=== PATIENT | female | born 1945 | race Caucasian/White ===

== ENCOUNTER → 2016-09-26 | Outpatient (CLI) | payer OTHER, MEDICARE ==
[~2016-09-26] MED LIST: ALEVE220 MG PO; AMARYL4 MG PO; ANTI-DIARRHEAL2 MG PO; AUGMENTIN 875875 MG PO; AZATHIOPRINE50 MG PO; CALCIUM 600 +1 EA15 PO; CALCIUM OYSTER500 MG PO; CEFDINIR300 MG PO; CINNAMON500 MG PO; CULTURELLE1 EAC1 PO; DOXYCYCLINE HY100 M3 PO; ENALAPRIL MALEA10 M1 PO; FEMARA2.5 MG PO; GLUCOSAMINE &1 EACH PO; GUAIFENESIN; HYDROCHLOROTHIA25 M1 PO; HYDROXYCHLOROQ200 M1 PO; IMURAN 50MG TAB50 M1 PO; METFORMIN 500500 MG PO; METFORMIN HCL500 MG PO; MSM500 MG PO; NORCO 5-325 TA1 EACH PO; OMEPRAZOLE40 MG PO; PREDNISONE 10 M10 MG PO; PREDNISONE 5 MG5 M1 PO; PRILOSEC20 MG PO; REZYST IM TABL150 MG PO; STOOL SOFTENER100 MG PO; TESSALON PERLE100 MG PO; ULTRACET TABLET1 TAB PO; VASOTEC10 MG PO; VITAMIN B-12500 MCG PO; VITAMIN C500 M1 PO; VITAMIN D1000 UNI1 PO; WOMEN'S DAILY1 EAC2 PO
== END ==
LOC: PUL 08:55
DX: J84.9 Interstitial pulmonary disease, unspecified (principal)

== ENCOUNTER → 2016-12-13 | Outpatient (CLI) | payer OTHER, MEDICARE ==
[~2016-12-13] VITALS: Ht 149.9 cm; Wt 74.4 kg
[~2016-12-13] MED LIST changes: +CELEBREX 200 M200 MG PO
--- NOTE | ~2016-12-13 | HPC ---
[facility] [place] [address] PAIN MANAGEMENT CONSULTATION Name: SAL GALLAGHER Kaushik Room #: REG GENOLashae Verdin#: [id number] Admission: 12/13/16 Attend Phys: Richard Laughlin DO Discharge: Date of : 49 Report #: [id number] THIS REPORT FOR: //name// CC: Cliff Laughlin The patient is a 71-year-old female, prior seen in pain clinic back in March for symptomatic lumbar radiculopathy secondary to spinal stenosis. She has had 2 prior epidural injections with incremental improvement of baseline pain, was actually doing well until she was standing in a wedding, had acute exacerbation of pain, right posterior leg to the foot, throbbing, aching sensation, she rates it an 8/10. This is associated with some weakness, fortunately no bowel or bladder continence changes noted. PHYSICAL EXAMINATION: Shows a 71-year-old female, BMI is 33.1 kg/m2. Vital signs are generally stable. Rises from chair using armrest. Modestly antalgic gait. Grossly positive straight leg raise on the right. Decreased plantar flexion strength. Reviewed the MRI findings from March 2016, noting dramatic stenosis at L4-L5, severe stenosis of the canal down to 0.5 cm, annular tear noted at left paramedian disk, there is severe right neural foraminal narrowing. L5-S1, notes bilateral neural foraminal narrowing as well. ASSESSMENT: Symptomatic lumbar radiculopathy secondary to spinal stenosis. RECOMMENDATIONS: Epidural injection under fluoroscopy today, right of midline at L5-S1. Follow up in 3 weeks for reevaluation and consideration for repeat injection if indicated clinically. Otherwise, we will simply follow up on an as needed basis. PROCEDURE: Lumbar epidural injection under fluoroscopy. PROCEDURE NOTE: After both written and informed consent to include risk of spinal cord damage, increased pain, weakness and dural puncture, the patient was taken to the fluoroscopy suite, placed in the prone position. After sterile prep and drape, a skin wheal with lidocaine was raised. A 22-gauge epidural Tuohy needle was inserted in the midline at L5-S1 with good loss to resistance. Negative aspiration for cerebrospinal fluid or blood was noted. Then 1 mL of Omnipaque under biplanar fluoroscopy showed good spread within the epidural space. This was followed with 80 mg of triamcinolone plus 1 mL of 1.5% preservative-free Xylocaine, 0.5 mL Xylocaine was then injected to flush the [facility] [address] [place] [address] PAIN MANAGEMENT CONSULTATION Name: SAL GALLAGHER Room #: REG CLI Lambert#: [id number] Admission: 12/13/16 Attend Phys: Richard Laughlin DO Discharge: Date of : 49 Report #: [id number] needle; it was removed. The patient was monitored for an appropriate period of time and discharged in good and stable condition. <ELECTRONICALLY SIGNED> By: Richard Laughlin DO 12/17/16 0856 1544 1851 Richard Laughlin DO /matthew
[2016-12-13 14:20] VITALS: BP 138/71
== END | disposition home or self-care (01) ==
LOC: PAIN 06:47
DX: M54.16 Radiculopathy, lumbar region (principal); M48.06 Spinal stenosis, lumbar region; G89.29 Other chronic pain; Z88.8 Allergy status to other drugs, medicaments and biological substances; Z98.890 Other specified postprocedural states

== ENCOUNTER → 2017-01-25 | Outpatient (CLI) | payer OTHER, MEDICARE | LOC: NUC 09:30 | DX: C50.919 Malignant neoplasm of unspecified site of unspecified female breast (principal); D47.2 Monoclonal gammopathy; M47.892 Other spondylosis, cervical region; M41.86 Other forms of scoliosis, lumbar region; M41.84 Other forms of scoliosis, thoracic region; M47.896 Other spondylosis, lumbar region; M47.894 Other spondylosis, thoracic region; M16.11 Unilateral primary osteoarthritis, right hip; M19.012 Primary osteoarthritis, left shoulder; M19.011 Primary osteoarthritis, right shoulder; M19.032 Primary osteoarthritis, left wrist; M19.031 Primary osteoarthritis, right wrist; M89.8X9 Other specified disorders of bone, unspecified site ==

== ENCOUNTER → 2017-03-26 | Outpatient (CLI) | payer OTHER, MEDICARE | LOC: RAD 11:52 | DX: R05 Cough (principal) ==

== ENCOUNTER → 2017-04-05 | Outpatient (CLI) | payer OTHER, MEDICARE ==
[~2017-04-05] VITALS: Ht 149.9 cm; Wt 71.8 kg
[~2017-04-05] MED LIST changes: +NEURONTIN 300300 M1 PO
--- NOTE | ~2017-04-05 | HPC ---
[facility] [place] [address] PAIN MANAGEMENT CONSULTATION Name: SAL GALLAGHER Kaushik Room #: REG Lashae Verdin#: [id number] Admission: 04/05/17 Attend Phys: Richard Laughlin DO Discharge: Date of : 49 Report #: [id number] THIS REPORT FOR: //name// CC: Cliff Laughlin The patient is a very pleasant 71-year-old female well known to the pain clinic, being treated for symptomatic lumbar radiculopathy secondary to spinal stenosis. She was prior seen about a year ago in March 2016, given epidural injection with excellent improvement of pain. The patient notes some 60% improvement for nearly a year. Pain has begun to recur, primarily low back, right hip, down to the foot and posterior aspect of the leg. We reviewed diagnostic findings including MRI of the lumbar spine from 03/26/2016 showing severe stenosis at L4-L5 down to 0.5 cm, severe disk space narrowing at L5-S1 as well. PHYSICAL EXAMINATION: Shows pleasant 71-year-old female, BMI is ____ kilograms per meter squared. Vital signs are stable as noted in the EMR. Rises from chair using armrest. Moderately antalgic gait favoring the right leg. Positive straight leg raise on the right with diminished right plantar flexion, lower extremity flexion strength. ASSESSMENT: Symptomatic lumbar radiculopathy secondary to spinal stenosis. RECOMMENDATIONS: Epidural injection under fluoroscopy today at L5-S1. Follow up simply as needed. PROCEDURE: Lumbar epidural injection under fluoroscopy. PROCEDURE NOTE: After both written and informed consent to include risk of spinal cord damage, increased pain, weakness and dural puncture, the patient was taken to the fluoroscopy suite, placed in the prone position. After sterile prep and drape, a skin wheal with lidocaine was raised. A 22-gauge epidural Tuohy needle was inserted in the midline at L5-S1 with good loss to resistance. Negative aspiration for cerebrospinal fluid or blood was noted. Then 1 mL of Omnipaque under biplanar fluoroscopy showed good spread within the epidural space. This was followed with 80 mg of triamcinolone plus 1 mL of 1.5% preservative-free Xylocaine, 0.5 mL Xylocaine was then injected to flush the needle; it was removed. The patient was monitored for an appropriate period of time and discharged in good and stable condition. By: [id number] [id number] Richard Laughlin DO /nt
[2017-04-05 13:33] VITALS: BP 145/55
== END | disposition home or self-care (01) ==
LOC: PAIN 04-04 07:06
DX: M48.061 Spinal stenosis, lumbar region without neurogenic claudication (principal); G89.29 Other chronic pain; Z98.890 Other specified postprocedural states; Z88.6 Allergy status to analgesic agent; Z79.899 Other long term (current) drug therapy; Z88.8 Allergy status to other drugs, medicaments and biological substances

== ENCOUNTER → 2017-04-10 | Outpatient (CLI) | payer OTHER, MEDICARE | LOC: PUL 09:45 | DX: J84.9 Interstitial pulmonary disease, unspecified (principal) ==

== ENCOUNTER → 2017-07-10 | Outpatient (CLI) | payer OTHER, MEDICARE ==
[~2017-07-10] MED LIST changes: +CYMBALTA20 MG PO; +DIFLUCAN200 MG PO; +HYDROCHLOROTHIA25 M2 PO; +METHYLPREDNISOLO4 MG PO; +PEPCID20 MG PO; +SYMBICORT160 MCG/4. INH; +TRAMADOL 50 MG50 MG PO; +TRESIBA FL100 UNIT/1 PO; +TRESIBA FL200 UNIT/1 SUBQ; +VENTOLIN HFA 1818 GM INH; +ZANAFLEX4 MG PO; +ZOFRAN ODT4 MG DISSOLVE
== END ==
LOC: RAD 01:07
DX: Z12.31 Encounter for screening mammogram for malignant neoplasm of breast (principal)

== ENCOUNTER → 2017-08-05 | Outpatient (CLI) | payer OTHER, MEDICARE ==
[~2017-08-05] VITALS: Ht 147.3 cm; Wt 69.7 kg
--- NOTE | ~2017-08-05 | HPC ---
[facility] [place] [address] PAIN MANAGEMENT CONSULTATION Name: SAL GALLAGHER Kaushik Room #: REG GENOLashae Verdin#: [id number] Admission: 08/05/17 Attend Phys: Richard Laughlin DO Discharge: Date of : 47 Report #: [id number] THIS REPORT FOR: //name// CC: Cliff Laughlin The patient is a pleasant 71-year-old female, being treated for symptomatic lumbar radiculopathy. She had prior injection in March 2017 (L5-S1) with excellent improvement of pain. The patient noted 80% improvement for 3 months, notes the pain has gradually begun to recur without antecedent trauma and overuse. Pain is chronically in the right low back and legs, now on the left side. Posterior thigh and beltline. She is developing some right-sided weakness with activity. To her credit, she continues to do water aerobics 3 times a week, takes Aleve [id number] p.r.n. Rates her pain presently; however, an 8 on VAS. PHYSICAL EXAMINATION: Shows a 71-year-old female, BMI is 32.1 kg/m2. Again, subjective pain score is 8 on a VAS. Blood pressure 128/60, pulse 73, and respirations are 16. She has not fallen in 3 months. Rises from chair using armrest. Antalgic gait. Lumbar flexion and kyphosis, weak left lower extremity, again 45-degree flexion. We reviewed MRI findings including MRI from 03/26/2016. L4-L5 notes severe stenosis, canal diminished with an annular tear. ASSESSMENT: Symptomatic lumbar radiculopathy secondary to spinal stenosis. RECOMMENDATION: Epidural injection under fluoroscopy today at L5-S1. Follow up simply as needed. PROCEDURE: Lumbar epidural injection under fluoroscopy. PROCEDURE NOTE: After both written and informed consent to include risk of spinal cord damage, increased pain, weakness and dural puncture, the patient was taken to the fluoroscopy suite, placed in the prone position. After sterile prep and drape, a skin wheal with lidocaine was raised. A 22-gauge epidural Tuohy needle was inserted in the midline at L5-S1 with good loss to resistance. Negative aspiration for cerebrospinal fluid or blood was noted. Then 1 mL of Omnipaque under biplanar fluoroscopy showed good spread within the epidural space. This was followed with 80 mg of triamcinolone plus 1 mL of 1.5% preservative-free Xylocaine, 0.5 mL Xylocaine was then injected to flush the needle; it was removed. The patient was monitored for an appropriate period of time and discharged in good and stable condition. <ELECTRONICALLY SIGNED> By: Richard Laughlin DO 08/07/17 1417 1301 1334 Richard Laughlin DO /nt
[2017-08-05 08:34] VITALS: BP 128/60
== END | disposition home or self-care (01) ==
LOC: PAIN 08-01 06:48
DX: M54.16 Radiculopathy, lumbar region (principal); Z68.32 Body mass index [BMI] 32.0-32.9, adult; M48.061 Spinal stenosis, lumbar region without neurogenic claudication

== ENCOUNTER → 2017-10-04 | Outpatient (CLI) | payer OTHER, MEDICARE ==
[~2017-10-04] MED LIST changes: -CYMBALTA20 MG PO; -DIFLUCAN200 MG PO; -HYDROCHLOROTHIA25 M2 PO; -METHYLPREDNISOLO4 MG PO; -PEPCID20 MG PO; -SYMBICORT160 MCG/4. INH; -TRAMADOL 50 MG50 MG PO; -TRESIBA FL100 UNIT/1 PO; -TRESIBA FL200 UNIT/1 SUBQ; -VENTOLIN HFA 1818 GM INH; -ZANAFLEX4 MG PO; -ZOFRAN ODT4 MG DISSOLVE
== END ==
LOC: PUL 05:53
DX: J84.9 Interstitial pulmonary disease, unspecified (principal)

== ENCOUNTER → 2017-10-22 | Outpatient (CLI) | payer OTHER, MEDICARE | LOC: CAT 06:17 → EDSTATUS 18:07 | DX: M47.896 Other spondylosis, lumbar region (principal); J84.9 Interstitial pulmonary disease, unspecified; M48.07 Spinal stenosis, lumbosacral region; M41.86 Other forms of scoliosis, lumbar region; M54.40 Lumbago with sciatica, unspecified side ==

== ENCOUNTER → 2017-11-07 | Outpatient (CLI) | payer OTHER, MEDICARE ==
[~2017-11-07] VITALS: Ht 149.9 cm; Wt 66.2 kg
[~2017-11-07] MED LIST changes: +CYMBALTA20 MG PO; +TRAMADOL 50 MG50 MG PO; +ZANAFLEX4 MG PO
--- NOTE | ~2017-11-07 | HPC ---
[address] [address] PAIN MANAGEMENT CONSULTATION Name: SAL GALLAGHER Room #: REG CLLashae Verdin#: [id number] Admission: 11/07/17 Attend Phys: Richard Laughlin DO Discharge: Date of : 47 Report #: [id number] THIS REPORT FOR: //name// CC: Cliff Laughlin DATE OF SERVICE: 11/07/2017 The patient is a pleasant 71-year-old female, prior seen in pain clinic for symptomatic lumbar radiculopathy secondary to spinal stenosis. She is typically doing well with occasional epidural injections, had a midline epidural injection at L5-S1 on 08/05/2017. Unfortunately, this injection really did not afford the typical relief that she usually gets. Prior injections in March and November 2015 had afforded many months relief. She has ongoing pain, bilateral L4 distribution, exacerbated with standing, walking and bending. PHYSICAL EXAMINATION: Shows significant loss of height at multiple levels including L4-L5. Notes antalgic gait, decreased hip flexion, lower extremity extension strength, bilateral straight leg raise at 30 degrees. ASSESSMENT: Symptomatic lumbar radiculopathy secondary to spinal stenosis. RECOMMENDATIONS: After long discussions with the patient today, we have elected to move forward with bilateral L4-L5 transforaminal epidural injections. If this does not afford adequate relief, we will consider spinal cord stimulator as possible therapeutic intervention. Unfortunately, she has significant pulmonary disease, which has precluded her from elective lumbar decompressive surgery. ASSESSMENT: Symptomatic lumbar radiculopathy secondary to spinal stenosis. PROCEDURE: Bilateral L4-L5 transforaminal epidural injection under fluoroscopy. PROCEDURE NUMBER ONE: Transforaminal lumbar epidural injection under fluoroscopy. PROCEDURE NOTE: After both written and informed consent was obtained including risk of spinal cord damage, infection, increased pain and paralysis, the patient agreed to proceed. The patient was taken to the fluoroscopy suite, placed in a prone position with appropriate abdominal bolstering. After sterile prep with ChloraPrep and sterile drape, a skin wheal with 1% Xylocaine was raised. A 22 gauge 4-1/2 inch epidural Tuohy needle was inserted. From an oblique approach into the posterior-superior aspect of the left L4-L5 neural foramen with continuous pressure on the glass syringe plunger for loss of resistance. Glass syringe was filled with 2 mL of 0.1 Xylocaine. The glass loss of resistance [address] [address] PAIN MANAGEMENT CONSULTATION Name: SAL GALLAGHER Room #: REG MAXIMILIAN Verdin#: [id number] Admission: 11/07/17 Attend Phys: Richard Laughlin DO Discharge: Date of : 49 Report #: [id number] syringe was removed. A low volume extension tubing was connected, negative aspiration was accomplished for cerebrospinal fluid or blood. 1 mL of Omnipaque was injected which showed spread both within the epidural space and laterally along the nerve root. This was followed with 40 mg of triamcinolone plus 1 mL of 1.5% preservative-free Xylocaine. Needle was partially withdrawn, 0.5 mL of Xylocaine was injected to clear the needle and the needle was removed. The area was cleansed, band-aid was applied. The patient was allowed to ambulate to the recovery room, discharged in good and stable condition. PROCEDURE NUMBER TWO: Right L4-L5 transforaminal epidural injection under fluoroscopy. PROCEDURE NOTE: After both written and informed consent was obtained including risk of spinal cord damage, infection, increased pain and paralysis, the patient agreed to proceed. The patient was taken to the fluoroscopy suite, placed in a prone position with appropriate abdominal bolstering. After sterile prep with ChloraPrep and sterile drape, a skin wheal with 1% Xylocaine was raised. A 22 gauge 4-1/2 inch epidural Tuohy needle was inserted. From an oblique approach into the posterior-superior aspect of the right L4-L5 neural foramen with continuous pressure on the glass syringe plunger for loss of resistance. Glass syringe was filled with 2 mL of 0.1 Xylocaine. The glass loss of resistance syringe was removed. A low volume extension tubing was connected, negative aspiration was accomplished for cerebrospinal fluid or blood. 1 mL of Omnipaque was injected which showed spread both within the epidural space and laterally along the nerve root. This was followed with 40 mg of triamcinolone plus 1 mL of 1.5% preservative-free Xylocaine. Needle was partially withdrawn, 0.5 mL of Xylocaine was injected to clear the needle and the needle was removed. The area was cleansed, band-aid was applied. The patient was allowed to ambulate to the recovery room, discharged in good and stable condition. <ELECTRONICALLY SIGNED> By: Richard Laughlin DO 11/11/17 0711 1323 194 Richard Laughlin DO /nt
[2017-11-07 10:10] VITALS: BP 124/70
== END | disposition home or self-care (01) ==
LOC: PAIN 05:36
DX: M48.061 Spinal stenosis, lumbar region without neurogenic claudication (principal); G89.29 Other chronic pain; E11.9 Type 2 diabetes mellitus without complications; J98.4 Other disorders of lung; Z88.8 Allergy status to other drugs, medicaments and biological substances; Z79.899 Other long term (current) drug therapy; Z98.890 Other specified postprocedural states; Z85.3 Personal history of malignant neoplasm of breast; Z96.653 Presence of artificial knee joint, bilateral

== ENCOUNTER 2018-01-03 23:50 | Emergency (ER) | payer OTHER, MEDICARE ==
[~2018-01-03] VITALS: Ht 147.3 cm; Wt 63.0 kg
--- NOTE | ~2018-01-03 | EKG ---
[address] [address] [place] [address] ELECTROCARDIOGRAM REPORT Name: SAL GALLAGHER Room #: [facility] [id number] Admission: 01/03/18 Attend Phys: Discharge: 01/04/18 Date of : 49 Report #: [id number] THIS REPORT FOR: //name// 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 01/05/18 1401 0022 0022 Willi Hudson MD, FACC /EPI
[~2018-01-03 23:50] MED LIST changes: -PEPCID20 MG PO; -ZOFRAN ODT4 MG DISSOLVE
[2018-01-04 00:41] LABS: ABSOLUTE NEUTROPHILS 3.8 thou/uL (1.4-8.2); BASOPHILS 0.9 % (0.0-2.0); EOSINOPHILS 4.2 % (0.0-3.0); HEMATOCRIT 34.7 % (37.0-47.0); HEMOGLOBIN 11.9 gm/dL (12.0-15.0); LYMPHOCYTES 28.7 % (24.0-44.0); MCH 33.4 pg (26.0-34.0); MCHC 34.4 g/dL (28.0-37.0); MCV 96.9 fL (80.0-100.0); MONOCYTES 8.4 % (1.0-8.0); PLATELET COUNT 316 thou/uL (150-400); POLYS 57.8 % (36.0-66.0); RBC 3.58 mil/uL (4.20-5.00); RDW 17.4 % (10.5-14.5); WBC 6.6 thou/uL (4.0-11.0)
[2018-01-04 00:51] LABS: ANION GAP 5 mmol/L (7-16); BUN 31 mg/dL (7-18); CALCIUM 9.9 mg/dL (8.5-10.1); CHLORIDE 94 mmol/L (98-107); CO2 30 mmol/L (21-32); CREATININE 1.5 mg/dL (0.6-1.0); GLUCOSE 436 mg/dL (74-106); POTASSIUM 4.4 mmol/L (3.5-5.1); SODIUM 129 mmol/L (136-145)
[2018-01-04 01:00] LABS: ALBUMIN 3.5 g/dL (3.4-5.0); MAGNESIUM 1.8 mg/dL (1.8-2.4); PHOSPHORUS 3.5 mg/dL (2.5-4.9); SGOT 24 U/L (15-37); SGPT 19 U/L (30-65); TOTAL BILIRUBIN 0.5 mg/dL (<0.1-1.0); TOTAL PROTEIN 7.4 g/dL (6.4-8.2); TROPONIN-I <0.06 ng/mL (<0.06)
[2018-01-04 01:45] LABS: URINE BILIRUBIN NEGATIVE (Negative); URINE BLOOD NEGATIVE (Negative); URINE CLARITY CLEAR; URINE COLOR YELLOW; URINE GLUCOSE-RANDOM* 3+ (Negative); URINE KETONES NEGATIVE (Negative); URINE LEUKOCYTES-REFLEX NEGATIVE (Negative); URINE NITRITE-REFLEX NEGATIVE (Negative); URINE PROTEIN (DIPSTICK) NEGATIVE (Negative); URINE SPECIFIC GRAVITY <= 1.005 (1.005-1.035); URINE UROBILINOGEN 0.2 E.U./dl (0.2-1.0)
[2018-01-04] MEDS ORDERED: ZOFRAN ODT4 MG DISSOLVE (04:24)
[2018-01-04] MEDS ORDERED: PEPCID20 MG PO (04:26)
[2018-01-04 04:44] VITALS: BP 158/70
== END 2018-01-04 04:46 | disposition home or self-care (01) ==
LOC: ER 23:50
PROVIDERS: Emergency Medicine
DX: E11.22 Type 2 diabetes mellitus with diabetic chronic kidney disease (principal); N18.9 Chronic kidney disease, unspecified; K59.00 Constipation, unspecified; R05 Cough; Z90.11 Acquired absence of right breast and nipple; Z90.710 Acquired absence of both cervix and uterus; Z90.89 Acquired absence of other organs; Z88.5 Allergy status to narcotic agent; Z88.8 Allergy status to other drugs, medicaments and biological substances

== ENCOUNTER → 2018-01-03 | Outpatient (CLI) | payer OTHER, MEDICARE ==
[~2018-01-03] MED LIST changes: +PEPCID20 MG PO; +ZOFRAN ODT4 MG DISSOLVE
== END ==
LOC: CAT 08:38
DX: J32.8 Other chronic sinusitis (principal); J34.1 Cyst and mucocele of nose and nasal sinus

== ENCOUNTER 2018-01-09 12:44 | Inpatient (IN) | payer OTHER, MEDICARE ==
[~2018-01-09] VITALS: Ht 147.3 cm; Wt 61.7 kg
[2018-01-09] VITALS (9 sets, daily range): BP systolic 96–148; BP diastolic 58–102
[~2018-01-09 12:44] MED LIST changes: +PEPCID20 MG PO; +ZOFRAN ODT4 MG DISSOLVE
[2018-01-09] MEDS ORDERED: OMEPRAZOLE40 MG PO (13:38)
[2018-01-09] MEDS ORDERED: DIFLUCAN200 MG PO (13:39)
[2018-01-09] MEDS ORDERED: METHYLPREDNISOLO4 MG PO (13:39)
[2018-01-09 15:08] LABS: ALBUMIN 3.7 g/dL (3.4-5.0); CALCIUM 10.2 mg/dL (8.5-10.1); POTASSIUM 5.6 mmol/L (3.5-5.1); TOTAL BILIRUBIN 0.7 mg/dL (<0.1-1.0); TOTAL PROTEIN 7.8 g/dL (6.4-8.2)
[2018-01-10 04:08] VITALS: BP 131/69
[2018-01-10] MEDS ORDERED: TRESIBA FL200 UNIT/1 SUBQ (07:20)
[2018-01-10 09:18] VITALS: BP 118/62
[2018-01-10 15:58] VITALS: BP 118/62
[2018-01-10 19:27] VITALS: BP 118/62
== END 2018-01-10 16:55 | disposition home or self-care (01) | DRG 683 ==
LOC: 4W 12:44 → ENTRNSPT 01-10 16:21 → 4W 01-10 16:55
PROVIDERS: Family Medicine
DX: N17.9 Acute kidney failure, unspecified (principal); E87.1 Hypo-osmolality and hyponatremia; E11.65 Type 2 diabetes mellitus with hyperglycemia; Z96.659 Presence of unspecified artificial knee joint; E87.5 Hyperkalemia; J84.10 Pulmonary fibrosis, unspecified; Z88.6 Allergy status to analgesic agent; Z88.8 Allergy status to other drugs, medicaments and biological substances; Z90.710 Acquired absence of both cervix and uterus; Z79.4 Long term (current) use of insulin
CPT/HCPCS: 10047

== ENCOUNTER → 2018-05-05 | Outpatient (CLI) | payer OTHER, MEDICARE ==
[~2018-05-05] VITALS: Ht 149.9 cm; Wt 57.6 kg
[~2018-05-05] MED LIST changes: +DIFLUCAN200 MG PO; +HYDROCHLOROTHIA25 M2 PO; +METHYLPREDNISOLO4 MG PO; +SYMBICORT160 MCG/4. INH; +TRESIBA FL100 UNIT/1 PO; +TRESIBA FL200 UNIT/1 SUBQ; +VENTOLIN HFA 1818 GM INH
--- NOTE | ~2018-05-05 | PATH ---
[facility] [place] [place] [address] PATHOLOGY RPT PROCEDURE Name: SAL KOROMA Kaushik Room #: REG MAXIMILIAN Oakes.#: [id number] Admission: 05/05/18 Date of : 49 Discharge: Report #: [id number] Path Case #: [id number] [facility] Accession Number: [id number] . 01 Material submitted: . 60CM MASS . 01 Clinical history: . Pre-OP DX: Diarrhea Post-OP DX: Colon mass . 02 Diagnosis: Colonic mucosa, "60 cm mass": - Fragments of hyperplastic polyps with focal early adenomatous change. - A minute fragment reveals an ulcerated mucosa with few fragments of colonic glands. - See comment. . (SHA:robert; 05/06/18) QLM/05/06/2018 . 02 Comment: Suggest clinical correlation as the biopsy may not be bilingual sales representative if there is a colonic mass. Repeat colonoscopy and biopsy may be recommended. . (SHA:mml; 05/06/18) . 02 Electronically signed: . Rui Hill MD, Pathologist NPI- [id number] . 01 Gross description: . Received in formalin labeled "Sal Koroma, 60 cm mass," are multiple segments of saldivar soft tissue measuring 2.0 x 0.3 x 0.1 cm in aggregate dimensions. The specimen is filtered and entirely submitted in cassette A1. (TSD; 05/05/2018) TOB/TOB . 02 Pathologist provided ICD-10: K63.5, K63.3 . 02 CPT . 337873 Specimen Comment: A courtesy copy of this report has been sent to Specimen Comment: [phone], [phone]. [address] [address] PATHOLOGY RPT PROCEDURE Name: SAL KOROMA Room #: REG CLI Kaushik.#: [id number] Admission: 05/05/18 Date of : 49 Discharge: Report #: [id number] Path Case #: [id number] Specimen Comment: Report sent to / DR SANTIAGO Specimen Comment: A duplicate report has been generated due to demographic updates. Performed at: 01 [facility] [address] [facility] [address], [place], [place] [id number] MD Harish Soliman MD Phone: [phone] Performed at: [address] [facility] [id number] MD Kristy Foreman MD Phone: [phone]
== END | disposition home or self-care (01) ==
LOC: GI 08:55
DX: K63.5 Polyp of colon (principal); K63.3 Ulcer of intestine; E11.9 Type 2 diabetes mellitus without complications; K64.9 Unspecified hemorrhoids; F32.9 Major depressive disorder, single episode, unspecified; J44.9 Chronic obstructive pulmonary disease, unspecified; E11.40 Type 2 diabetes mellitus with diabetic neuropathy, unspecified; K21.9 Gastro-esophageal reflux disease without esophagitis; I26.99 Other pulmonary embolism without acute cor pulmonale; G89.29 Other chronic pain; Z98.890 Other specified postprocedural states; Z88.2 Allergy status to sulfonamides; Z88.8 Allergy status to other drugs, medicaments and biological substances; Z86.718 Personal history of other venous thrombosis and embolism; Z79.4 Long term (current) use of insulin; Z79.899 Other long term (current) drug therapy; Z96.653 Presence of artificial knee joint, bilateral; Z90.710 Acquired absence of both cervix and uterus; Z85.3 Personal history of malignant neoplasm of breast
CPT/HCPCS: 62110; 62900

== ENCOUNTER 2018-07-02 03:44 | Inpatient (IN) | payer OTHER, MEDICARE ==
[~2018-07-02] VITALS: Ht 147.3 cm; Wt 60.5 kg
[~2018-07-02 03:44] MED LIST changes: +ALEVE220 M1 PO; +LANTUS100 UNIT/M SUBQ; +PROAIR HFA8.5 GM INH; +VITAMIN D31000 UNIT PO
[2018-07-02 10:45] VITALS: BP 134/70
[2018-07-02 20:06] VITALS: BP 164/67
[2018-07-03 04:09] LABS: CALCIUM 9.1 mg/dL (8.5-10.1); CREATININE 1.1 mg/dL (0.6-1.0); POTASSIUM 4.2 mmol/L (3.5-5.1)
[2018-07-03 04:10] LABS: ABSOLUTE NEUTROPHILS 9.9 thou/uL (1.4-8.2); BASOPHILS 0.1 % (0.0-2.0); HEMATOCRIT 27.7 % (37.0-47.0); HEMOGLOBIN 9.5 gm/dL (12.0-15.0); LYMPHOCYTES 6.5 % (24.0-44.0); MCH 31.1 pg (26.0-34.0); MCHC 34.4 g/dL (28.0-37.0); MCV 90.3 fL (80.0-100.0); MONOCYTES 6.4 % (1.0-8.0); PLATELET COUNT 204 thou/uL (150-400); RBC 3.07 mil/uL (4.20-5.00); WBC 11.4 thou/uL (4.0-11.0)
[2018-07-03 04:41] VITALS: BP 127/50
[2018-07-03 08:24] VITALS: BP 112/56
[2018-07-03 16:35] VITALS: BP 128/49
[2018-07-03 20:24] VITALS: BP 168/54
[2018-07-04] VITALS (7 sets, daily range): BP systolic 13–144; BP diastolic 46–89
[2018-07-04 05:43] LABS: ABSOLUTE NEUTROPHILS 6.2 thou/uL (1.4-8.2); BASOPHILS 0.4 % (0.0-2.0); HEMATOCRIT 23.7 % (37.0-47.0); HEMOGLOBIN 8.3 gm/dL (12.0-15.0); LYMPHOCYTES 12.5 % (24.0-44.0); MCH 31.5 pg (26.0-34.0); MCV 89.9 fL (80.0-100.0); MONOCYTES 7.7 % (1.0-8.0); PLATELET COUNT 165 thou/uL (150-400); POLYS 77.4 % (36.0-66.0); RBC 2.63 mil/uL (4.20-5.00); RDW 17.1 % (10.5-14.5); WBC 8.1 thou/uL (4.0-11.0)
[2018-07-04 05:58] LABS: CALCIUM 8.8 mg/dL (8.5-10.1); POTASSIUM 4.2 mmol/L (3.5-5.1)
[2018-07-04] MEDS ORDERED: TRAMADOL HCL50 MG PO (12:56)
[2018-07-04] MEDS ORDERED: ONDANSETRON HCL4 M2 PO (12:56)
[2018-07-04] MEDS ORDERED: MIRALAX17 GM PO (12:56)
[2018-07-05 06:57] LABS: ABSOLUTE NEUTROPHILS 6.2 thou/uL (1.4-8.2); BASOPHILS 0.5 % (0.0-2.0); EOSINOPHILS 3.6 % (0.0-3.0); HEMATOCRIT 25.6 % (37.0-47.0); HEMOGLOBIN 8.7 gm/dL (12.0-15.0); LYMPHOCYTES 8.2 % (24.0-44.0); MCH 30.8 pg (26.0-34.0); MCV 90.7 fL (80.0-100.0); MONOCYTES 6.9 % (1.0-8.0); PLATELET COUNT 195 thou/uL (150-400); POLYS 80.8 % (36.0-66.0); RBC 2.82 mil/uL (4.20-5.00); RDW 17.3 % (10.5-14.5); WBC 7.6 thou/uL (4.0-11.0)
[2018-07-05 07:05] LABS: CALCIUM 9.3 mg/dL (8.5-10.1); CREATININE 0.9 mg/dL (0.6-1.0); POTASSIUM 4.9 mmol/L (3.5-5.1)
[2018-07-05 07:41] VITALS: BP 158/77
[2018-07-07 11:08] VITALS: BP 116/46
--- NOTE | 2018-07-07 12:06 | PATH ---
[facility] [place] [address] PATHOLOGY RPT PROCEDURE Name: SAL KOROMA Kaushik Room #: 224-P [facility] IN M.R.#: [id number] Admission: 07/02/18 Date of : 49 Discharge: 07/05/18 Report #: [id number] Path Case #: [id number] LCA Accession Number: [id number] . 01 Material submitted: . SIGMOID RECTAL COLON . 01 Clinical history: . Colon tumor . 02 Diagnosis: Large intestine, sigmoid/rectum, laparoscopic hemicolectomy: - Ulceration associated with moderate to marked active colitis (please see comment). - Negative for dysplasia or malignancy. - Margins showing reactive changes;negative for dysplasia or malignancy (please see comment). - 31 reactive lymph nodes with hyperplasia; negative for malignancy (0/31). . Omentum, omentectomy: - 13.0 cm of omentum showing reactive changes. (IUV:paul; 07/04/2018) QMS/07/04/2018 . 02 Comment: Multiple sections of the ulcerated area along with the adjacent unremarkable mucosa are examined. The sections show extensive ulceration along with cryptitis, crypt abscess formation, as well as rare architectural abnormalities. In addition, transmural lymphoid aggregates are present. Granulomata are not identified. There are no viral inclusions present as well. Overall, the findings may be suggestive of an inflammatory bowel disease, especially Crohn's disease due to the presence of transmural lymphoid aggregates, as well as skip areas. The lack of malignancy as well as the same differential is discussed with Dr. Wong Gomes at approximately 2:30 p.m. on 07/04/2018. . The margins show rare foci of acute inflammation; however, active ulceration is not identified. The margins are viable without any evidence of dysplasia or malignancy as well. (IUV:paul; 07/04/2018) . 02 Electronically signed: . Kristy Foreman MD, Pathologist NPI- [id number] . 01 Gross description: . [address] [address] PATHOLOGY RPT PROCEDURE Name: SAL KOROMA Room #: 224-P [facility] IN M.R.#: [id number] Admission: 07/02/18 Date of : 49 Discharge: 07/05/18 Report #: [id number] Path Case #: [id number] The specimen is received in formalin, labeled "Sal Koroma, sigmoid rectal colon" and consists of 2 oriented segments of large intestine. The first is previously opened with previous black tattoo ink present. A suture at the open end designates proximal while the opposite end is closed with rachael (distal). It measures 23.5 cm in length and ranges from 1.5-2.5 cm in diameter. There is pericolic fat lining the entire specimen measuring up to 8.1 cm. At the site of black tattoo ink and extending to the proximal margin, there is stricture. At the site of stricture there is a saldivar-brown, multi focally friable/ulcerated tumor mass (9.5 x 1.4 cm) which grossly abuts the proximal resection margin. The mass extends greater than 12 cm from the distal margin and 1.5 cm from the nearest mesenteric margin. The nearest mesenteric margin is inked blue, the serosa black, and the proximal margin orange. Sectioning through the tumor mass reveals containment within the mucosa. The rest of the mucosa is saldivar-brown with no additional masses or lesions. Sectioning and palpation of the pericolic tissue reveals multiple lymph node candidates ranging from 0.2 cm to 1.0 cm. Body Art Technician sections are submitted as follows: . A1-A2: Perpendicular proximal margin sections A3: Distal margin A4: Tumor transition to distal uninvolved mucosa A5-A7: Body Art Technician mass A8: Perpendicular mesenteric margin A9: 2 lymph node candidates, bisected one inked blue A10: Multiple intact lymph node candidates A11: 2 bisected lymph node candidates, one inked blue A12: Multiple intact lymph node candidates A13: 2 bisected lymph node candidates, one inked blue A14: 2 bisected lymph node candidates, one inked blue A15: 2 bisected lymph node candidates, one inked blue A16: Intact lymph node candidates . The second oriented segment has a suture designating the proximal end while the distal end is closed. It measures 20.5 cm in length and ranges from 2.0-3.4 cm in diameter with pericolic fat lining the specimen measuring up to 6.5 cm. Also present and attached is a segment of omentum measuring 13.0 x 10.0 cm. Opening reveals a pink-saldivar mucosa with a probable pink-saldivar and focally scarred tumor mass which grossly extends to the distal margin, greater than 10 cm from the proximal margin, and measures 5.0 x 2.0 cm. The distal margin is inked orange and the serosa black. The tumor mass extends 2.3 cm from the nearest mesenteric margin (inked blue). Sectioning through the tumor mass reveals containment within the mucosa. No additional masses or lesions are identified. Sectioning the omentum reveals no nodules or tumor masses. Sectioning and palpation of the pericolic tissue reveals multiple lymph node candidates measuring between 0.2 cm and 0.7 cm. Body Art Technician sections are submitted as follows: [address] [address] PATHOLOGY RPT PROCEDURE Name: SAL KOROMA Kaushik Room #: 224-P [facility] IN M.R.#: [id number] Admission: 07/02/18 Date of : 49 Discharge: 07/05/18 Report #: [id number] Path Case #: [id number] . A17: Proximal margin A18: Distal margin, perpendicular A19: Tumor mass transition to proximal uninvolved mucosa A20-A22: Additional tumor mass A23: Mesenteric margin, perpendicular A24: Omentum A25: Multiple intact lymph node candidates A26: 2 bisected lymph node candidates, one inked blue (SDY; 07/03/2018) SYU/SYU . 02 Pathologist provided ICD-10: K63.3, K52.9, K63.9, R59.9 . 02 CPT . 476836, 188687 Specimen Comment: A courtesy copy of this report has been sent to Specimen Comment: [phone], , . Specimen Comment: Report sent to ,DR SANTIAGO / DR ADAMS Specimen Comment: A duplicate report has been generated due to demographic updates. Performed at: [address], [place] [id number] MD Harish Soliman MD Phone: [phone] Performed at: [address] [id number] MD Kristy Foreman MD Phone: [phone]
== END 2018-07-05 15:01 | disposition home health service (06) | DRG 329 ==
LOC: PRE 03:44 → 4E 05:33 → TBA 05:33 → PRE 06:29 → 4E 20:28 → ENTRNSPT 07-04 15:07 → EDTRNSPTSTS 07-04 15:14 → SICU 07-04 15:41
PROVIDERS: ADMIT Surgery
PROC: 0DTG4ZZ Resection of Left Large Intestine, Percutaneous Endoscopic Approach (ICD-10-PCS; principal; 2018-07-02)
PROC: 0DBN8ZX Excision of Sigmoid Colon, Via Natural or Artificial Opening Endoscopic, Diagnostic (ICD-10-PCS; 2018-07-02)
DX: R19.09 Other intra-abdominal and pelvic swelling, mass and lump (principal); E43 Unspecified severe protein-calorie malnutrition; M35.1 Other overlap syndromes; K59.00 Constipation, unspecified; E11.9 Type 2 diabetes mellitus without complications; K63.9 Disease of intestine, unspecified; M47.9 Spondylosis, unspecified; J84.10 Pulmonary fibrosis, unspecified; I10 Essential (primary) hypertension; K21.9 Gastro-esophageal reflux disease without esophagitis; D72.829 Elevated white blood cell count, unspecified; D64.9 Anemia, unspecified; I65.8 Occlusion and stenosis of other precerebral arteries; D47.2 Monoclonal gammopathy; R05 Cough; Z23 Encounter for immunization; Z79.4 Long term (current) use of insulin; Z88.6 Allergy status to analgesic agent; Z88.2 Allergy status to sulfonamides; Z88.8 Allergy status to other drugs, medicaments and biological substances; Z79.899 Other long term (current) drug therapy; Z86.711 Personal history of pulmonary embolism; Z85.3 Personal history of malignant neoplasm of breast; Z68.27 Body mass index [BMI] 27.0-27.9, adult
CPT/HCPCS: 10783; 15000; 50010; 50101; 50221; 50249; 50290; 50386; 50455; 50555; 50558; 50740; 50804; 51398; 51489; 52265; 53307; 53310; 54022; 54118; 56462; 56524; 56525; 56526; 56530; 56753; 57092; 62110; 62900; 64039; 70005

== ENCOUNTER → 2018-07-28 | Outpatient (CLI) | payer OTHER, MEDICARE ==
[~2018-07-28] MED LIST changes: +MIRALAX17 GM PO; +ONDANSETRON HCL4 M2 PO; +TRAMADOL HCL50 MG PO
== END ==
LOC: RAD 01:02
DX: Z12.31 Encounter for screening mammogram for malignant neoplasm of breast (principal)

== ENCOUNTER → 2018-08-12 | Outpatient (CLI) | payer OTHER, MEDICARE | LOC: HYPER 08-05 14:15 | DX: E11.622 Type 2 diabetes mellitus with other skin ulcer (principal); I70.243 Atherosclerosis of native arteries of left leg with ulceration of ankle; L97.322 Non-pressure chronic ulcer of left ankle with fat layer exposed; E11.51 Type 2 diabetes mellitus with diabetic peripheral angiopathy without gangrene; G89.29 Other chronic pain; I73.00 Raynaud's syndrome without gangrene; I10 Essential (primary) hypertension; I42.2 Other hypertrophic cardiomyopathy; M81.0 Age-related osteoporosis without current pathological fracture; M06.9 Rheumatoid arthritis, unspecified; F32.9 Major depressive disorder, single episode, unspecified; F41.9 Anxiety disorder, unspecified; Z86.718 Personal history of other venous thrombosis and embolism; Z85.3 Personal history of malignant neoplasm of breast; Z79.4 Long term (current) use of insulin; Z79.84 Long term (current) use of oral hypoglycemic drugs ==

== ENCOUNTER → 2018-08-19 | Outpatient (CLI) | payer OTHER, MEDICARE | LOC: HYPER 07:19 | DX: E11.622 Type 2 diabetes mellitus with other skin ulcer (principal); L97.322 Non-pressure chronic ulcer of left ankle with fat layer exposed; L89.520 Pressure ulcer of left ankle, unstageable; E11.51 Type 2 diabetes mellitus with diabetic peripheral angiopathy without gangrene; I73.00 Raynaud's syndrome without gangrene; I10 Essential (primary) hypertension; M81.0 Age-related osteoporosis without current pathological fracture; M06.9 Rheumatoid arthritis, unspecified; F32.9 Major depressive disorder, single episode, unspecified; Z79.4 Long term (current) use of insulin; Z79.84 Long term (current) use of oral hypoglycemic drugs; Z85.3 Personal history of malignant neoplasm of breast; Z86.718 Personal history of other venous thrombosis and embolism ==

== ENCOUNTER → 2018-08-26 | Outpatient (CLI) | payer OTHER, MEDICARE | LOC: HYPER 07:06 | DX: E11.622 Type 2 diabetes mellitus with other skin ulcer (principal); I70.243 Atherosclerosis of native arteries of left leg with ulceration of ankle; L97.322 Non-pressure chronic ulcer of left ankle with fat layer exposed; E11.51 Type 2 diabetes mellitus with diabetic peripheral angiopathy without gangrene; G89.29 Other chronic pain; I73.00 Raynaud's syndrome without gangrene; I10 Essential (primary) hypertension; I42.2 Other hypertrophic cardiomyopathy; M81.0 Age-related osteoporosis without current pathological fracture; M06.9 Rheumatoid arthritis, unspecified; F32.9 Major depressive disorder, single episode, unspecified; Z85.3 Personal history of malignant neoplasm of breast; Z86.718 Personal history of other venous thrombosis and embolism; Z79.4 Long term (current) use of insulin; Z79.84 Long term (current) use of oral hypoglycemic drugs ==

== ENCOUNTER → 2018-08-28 | Outpatient (CLI) | payer OTHER, MEDICARE ==
[~2018-08-28] MED LIST changes: +AZITHROMYCIN 2250 MG PO; +BENZONATATE100 MG PO; +NEURONTIN 300300 M1; +TAMIFLU30 MG PO
--- NOTE | ~2018-08-28 | PFR/MVV ---
[facility] [place] [address] PULMONARY FUNCTION MVV/REPORT Name: AILEENSAL R Room #: REG [facility]#: [id number] ������������������ Admission: 08/28/18 ������������������ Attend Phys: Physician not on staff Discharge: ������������������ Date of : 49 Report #: [id number] THIS REPORT FOR: //name// >> SPIROMETRY: (BTPS) Height: in cm Weight: lbs kg Exam Date: PRE-RX POST-RX PRED BEST %PRED BEST %PRED %CHG FVC LITERS . . . . . . FEV1 LITERS . . . . . . FEV1/FVC % . . . . . . HMA32-71% L/Sec . . . . . . PEF L/SEC . . . . . . FEF50/FIF50 UNITLESS . . . . . . MVV L/Min . . . f 1/Min . . . >> LUNG VOLUMES: (BTPS) PRE-RX POST-RX PRED AVG %PRED AVG %PRED %CHG VC Liters . . . . . . TLC Liters . . . . . . RV Liters . . . . . . RV/TLC % . . . . . . FRC PL Liters . . . . . . FRC N2 Liters . . . . . . ERV Liters . . . . . . IC Liters . . . . . . >> DIFFUSION: DLCO ml/Min/mmHg . . . . . . DL Chris ml/Min/mmHg . . . . . . DLCO/VA ml/Min/mmHg . . . . . . VA Liters . . . . . . COMMENTS: COMMENTS: >> RESISTANCE: [facility] [address] [place] [address] PULMONARY FUNCTION MVV/REPORT Name: AILEENSAL Room #: REG MAXIMILIAN Lambert#: [id number] ������������������ Admission: 08/28/18 ������������������ Attend Phys: Physician not on staff Discharge: ������������������ Date of : 47 Report #: [id number] PRE-RX PRED AVG %PRED Raw Total cmH20/L/Sec . . . Raw Insp cmH20/L/Sec . . . Raw Exp cmH20/L/Sec . . . Raw cmH20/L/Sec . . . Gaw L/Sec/cmH20 . . . sRaw cmH20 Sec . . . sGaw l/cmH20 Sec . . . Vtq Liters . . . # = OUTSIDE 95% CONFIDENCE INTERVAL CALIBRATION: PRED: 3.00 ACTUAL: EXP 3.01 INSP 3.02 IPS-OL10-06 [facility]- N-1804-4 >> INTERPRETATION/IMPRESSION: CC: Cliff York Physician staff DATE OF SERVICE: 08/28/2018 FEV1 1.17 liters (67%), FVC is 1.49 liters (70%). FEV1/FVC ratio is 78%; post-bronchodilator response is significant with FEV1 increasing to 1.30 liters (12% change). Total lung capacity is 2.05 liters (57%). RV is 0.42 liters (29%). Diffusing capacity is 9. IMPRESSION: Pulmonary function studies are consistent with a moderate restrictive airflow defect. There is a significant response to bronchodilator therapy. Diffusing capacity is severely decreased. ��������������������������������������������� ���������������������������������������� By: ��������������������������������������������� Mika Buck MD /nt
== END ==
LOC: PUL 08-26 13:11
DX: J84.9 Interstitial pulmonary disease, unspecified (principal)

== ENCOUNTER 2018-09-05 15:45 | Inpatient (IN) | payer OTHER, MEDICARE ==
[~2018-09-05] VITALS: Ht 124.5 cm; Wt 61.2 kg
[~2018-09-05 15:45] MED LIST changes: -AZITHROMYCIN 2250 MG PO; -BENZONATATE100 MG PO; -NEURONTIN 300300 M1; -TAMIFLU30 MG PO
[2018-09-05 16:25] VITALS: BP 145/64
[2018-09-05] MEDS ORDERED: NEURONTIN 300300 M1 (16:31)
[2018-09-05 16:53] LABS: HEMATOCRIT 29.2 % (37.0-47.0); MCH 28.5 pg (26.0-34.0); MCHC 34.1 g/dL (28.0-37.0); MCV 83.8 fL (80.0-100.0); RBC 3.49 mil/uL (4.20-5.00); RDW 18.6 % (10.5-14.5); WBC 5.4 thou/uL (4.0-11.0)
[2018-09-05 17:17] LABS: ALBUMIN 3.2 g/dL (3.4-5.0); CALCIUM 9.9 mg/dL (8.5-10.1); CREATININE 0.9 mg/dL (0.6-1.0); POTASSIUM 4.4 mmol/L (3.5-5.1); TOTAL BILIRUBIN 0.3 mg/dL (<0.1-1.0); TOTAL PROTEIN 7.7 g/dL (6.4-8.2)
--- NOTE | 2018-09-05 18:04 | NUR ---
ADM PT IS A DIRECT ADMIT FROM PROVIDER OFFICE. ADM ORDERS CARRIED OUT. PT ORIENTED TO ROOM. WILL CONTINUE TO MONITOR.
[2018-09-05 20:48] VITALS: BP 164/66
--- NOTE | 2018-09-06 03:47 | NUR ---
PT SLEPT THROUGH MOST OF THE NIGHT PT USED CALL LIGHT EFFECTIVELY NO ISSUES OVERNIGHT.
[2018-09-06 04:52] VITALS: BP 109/42
[2018-09-06 08:29] VITALS: BP 131/50
[2018-09-06 15:42] VITALS: BP 136/54
--- NOTE | 2018-09-06 17:50 | NUR ---
Pt A&Ox4, VSS, PT HAS NO SIGNS OF DISTRESS. PT HAS CRACKLES AND A NON-PRODUCTIVE COUGH. WOUND ON LEFT ANKLE, WOUND CONSULT OR PLACED. WILL CONTINUE TO MONITOR.
[2018-09-06 19:30] VITALS: BP 126/52
--- NOTE | 2018-09-07 01:11 | NUR ---
PT RESTED THROUGHOUT THE NIGHT WITH NO ISSUES OR COMPLAINTS PT USED CALL LIGHT EFFECTIVELY.
[2018-09-07 04:37] VITALS: BP 120/51
[2018-09-07 07:55] VITALS: BP 94/51
--- NOTE | 2018-09-07 12:48 | NUR ---
Pt A&Ox4 with stable VS. No SOA, crackles heard with lung assessment, breathing regular. Pt has a non-productive cough. Right hand IV has been removed. Pt states she felt burning sensation with IV Azithromycin. Pt takes PO Azithromycin instead. Per doctors report, pt will see wound doctor in regards to wound on left ankle. Will continue to monitor.
[2018-09-07 13:52] VITALS: BP 113/47
[2018-09-07 19:45] VITALS: BP 122/44
[2018-09-08 04:04] VITALS: BP 142/54
--- NOTE | 2018-09-08 05:55 | NUR ---
Assumed care at 1845. Pt resting in bed. Denies chest pain. She still has been having a non productive cough. VSS. No identified needs at the moment. Call light within reach. Will continue to monitor.
[2018-09-08] MEDS ORDERED: TAMIFLU30 MG PO (07:46)
[2018-09-08] MEDS ORDERED: BENZONATATE100 MG PO (07:47)
[2018-09-08] MEDS ORDERED: AZITHROMYCIN 2250 MG PO (07:47)
[2018-09-08] MEDS ORDERED: CEFDINIR300 MG PO (07:48)
[2018-09-08 08:32] VITALS: BP 112/44
[2018-09-08 11:11] VITALS: BP 112/44
--- NOTE | 2018-09-08 12:24 | NUR ---
PT LEFT HOME WITH DAUGHTER, PT TAKEN DOWN BY WHEELCHAIR. PT LEFT A&OX4, BREATHING REGULAR, CRACKLES STILL HEARD IN ALL LOBES WITH NON PRODUCTIVE COUGH. VITAL SIGNS STABLE. PT VERBALIZED UNDERSTANDING OF DISCHARGE ORDERS AND SIGNED. PT HAS PRESCIPTIONS AND FOLLOWUP INFORMATION. PT AWARE SHE IS TO FOLLOW UP WITH PRIMARY DR AND WOUND DR. PT HAS ALL BELONGINGS.
== END 2018-09-08 12:40 | disposition home or self-care (01) | DRG 195 ==
LOC: 4W 15:45 → ENTRNSPT 09-08 12:11 → EDTRNSPTSTS 09-08 12:14 → 4W 09-08 12:40
PROVIDERS: ADMIT Family Medicine
DX: J10.00 Influenza due to other identified influenza virus with unspecified type of pneumonia (principal); E11.9 Type 2 diabetes mellitus without complications; J84.10 Pulmonary fibrosis, unspecified; K21.9 Gastro-esophageal reflux disease without esophagitis; G89.29 Other chronic pain; M54.9 Dorsalgia, unspecified; Z96.653 Presence of artificial knee joint, bilateral; Z85.3 Personal history of malignant neoplasm of breast; Z86.711 Personal history of pulmonary embolism; Z90.710 Acquired absence of both cervix and uterus; Z79.4 Long term (current) use of insulin; Z79.899 Other long term (current) drug therapy; Z88.5 Allergy status to narcotic agent; Z88.2 Allergy status to sulfonamides; Z88.8 Allergy status to other drugs, medicaments and biological substances
CPT/HCPCS: 10045

== ENCOUNTER → 2018-09-05 | Outpatient (CLI) | payer OTHER, MEDICARE | LOC: HYPER 09-02 08:39 | DX: E11.622 Type 2 diabetes mellitus with other skin ulcer (principal); I70.243 Atherosclerosis of native arteries of left leg with ulceration of ankle; L97.322 Non-pressure chronic ulcer of left ankle with fat layer exposed; E11.51 Type 2 diabetes mellitus with diabetic peripheral angiopathy without gangrene; G89.29 Other chronic pain; I73.00 Raynaud's syndrome without gangrene; I10 Essential (primary) hypertension; I42.2 Other hypertrophic cardiomyopathy; M81.0 Age-related osteoporosis without current pathological fracture; M06.9 Rheumatoid arthritis, unspecified; M19.90 Unspecified osteoarthritis, unspecified site; F41.9 Anxiety disorder, unspecified; F32.9 Major depressive disorder, single episode, unspecified; Z86.718 Personal history of other venous thrombosis and embolism; Z85.3 Personal history of malignant neoplasm of breast; Z79.4 Long term (current) use of insulin; Z79.84 Long term (current) use of oral hypoglycemic drugs ==

== ENCOUNTER → 2018-09-12 | Outpatient (CLI) | payer OTHER, MEDICARE ==
[~2018-09-12] MED LIST changes: +AZITHROMYCIN 2250 MG PO; +BENZONATATE100 MG PO; +NEURONTIN 300300 M1; +TAMIFLU30 MG PO
== END ==
LOC: HYPER 08:16
DX: E11.622 Type 2 diabetes mellitus with other skin ulcer (principal); I70.243 Atherosclerosis of native arteries of left leg with ulceration of ankle; L97.322 Non-pressure chronic ulcer of left ankle with fat layer exposed; I10 Essential (primary) hypertension; I73.00 Raynaud's syndrome without gangrene; E11.51 Type 2 diabetes mellitus with diabetic peripheral angiopathy without gangrene; I11.9 Hypertensive heart disease without heart failure; I43 Cardiomyopathy in diseases classified elsewhere; G89.29 Other chronic pain; M81.0 Age-related osteoporosis without current pathological fracture; M06.9 Rheumatoid arthritis, unspecified; M19.90 Unspecified osteoarthritis, unspecified site; F41.9 Anxiety disorder, unspecified; Z79.4 Long term (current) use of insulin; Z79.84 Long term (current) use of oral hypoglycemic drugs; Z85.3 Personal history of malignant neoplasm of breast

== ENCOUNTER → 2018-09-16 | Outpatient (CLI) | payer OTHER, MEDICARE | LOC: RAD 14:27 | DX: M47.812 Spondylosis without myelopathy or radiculopathy, cervical region (principal); M48.02 Spinal stenosis, cervical region; M47.816 Spondylosis without myelopathy or radiculopathy, lumbar region; M41.86 Other forms of scoliosis, lumbar region; M47.814 Spondylosis without myelopathy or radiculopathy, thoracic region; M41.84 Other forms of scoliosis, thoracic region; M19.011 Primary osteoarthritis, right shoulder; M19.022 Primary osteoarthritis, left elbow; R91.8 Other nonspecific abnormal finding of lung field; E11.10 Type 2 diabetes mellitus with ketoacidosis without coma; E83.52 Hypercalcemia; Z96.653 Presence of artificial knee joint, bilateral ==

== ENCOUNTER → 2018-09-26 | Outpatient (CLI) | payer OTHER, MEDICARE | LOC: HYPER 08:09 | DX: E11.622 Type 2 diabetes mellitus with other skin ulcer (principal); I70.243 Atherosclerosis of native arteries of left leg with ulceration of ankle; L97.322 Non-pressure chronic ulcer of left ankle with fat layer exposed; E11.51 Type 2 diabetes mellitus with diabetic peripheral angiopathy without gangrene; G89.29 Other chronic pain; I73.00 Raynaud's syndrome without gangrene; I10 Essential (primary) hypertension; I42.2 Other hypertrophic cardiomyopathy; M81.0 Age-related osteoporosis without current pathological fracture; N06.9 Isolated proteinuria with unspecified morphologic lesion; F32.9 Major depressive disorder, single episode, unspecified; F41.9 Anxiety disorder, unspecified; Z85.3 Personal history of malignant neoplasm of breast; Z86.718 Personal history of other venous thrombosis and embolism; Z79.4 Long term (current) use of insulin; Z79.84 Long term (current) use of oral hypoglycemic drugs ==

== ENCOUNTER → 2018-10-03 | Outpatient (CLI) | payer OTHER, MEDICARE ==
[~2018-10-03] VITALS: Ht 147.3 cm; Wt 59.9 kg
[~2018-10-03] MED LIST changes: +GABAPENTIN 100100 MG PO; -NEURONTIN 300300 M1
--- NOTE | ~2018-10-03 | HPC ---
[facility] [address] [place] [address] PAIN MANAGEMENT CONSULTATION Name: SAL GALLAGHER Room #: REG MAXIMILIAN Lambert#: [id number] Admission: 10/03/18 ������������������ Attend Phys: Travis Zambrano MD Discharge: ������������������ Date of : 47 Report #: [id number] THIS REPORT FOR: //name// CC: Travis York DATE OF SERVICE: 10/03/2018 CHIEF COMPLAINT: "Here for medication evaluation." HISTORY: The patient is a 72-year-old female who has been plagued with lumbar radiculopathy. She has a history of spinal stenosis. She has had prior epidural steroid injections. She gleaned very good relief as a result of those. The patient has pain that radiated down into her legs. She has returned to the Pain Clinic with the thought of undergoing an epidural steroid injection because of some mid back pain as well as pain down into her right leg. She rates her pain as 5-6/10. She notes that the pain is exacerbated with activity. ALLERGIES: SULFA, CODEINE, DOCETAXEL. MEDICATIONS: Gabapentin 100 mg b.i.d., albuterol 2 puffs p.r.n., tramadol 50 mg q. six hours p.r.n., Aleve 220 mg, Lantus 10 units subcutaneously, vitamin D3 of 1000 units two capsules daily, Symbicort 160/4.5 one puff, hydrochlorothiazide 25 mg, metformin 500 mg b.i.d., Vasotec 10 mg. PAST MEDICAL HISTORY: Acute kidney injury, back pain, chest pain, chronic kidney disease, colonic obstruction, hip pain, hypoglycemia, left hip pain, lower abdominal pain, uncontrolled diabetes mellitus, nausea and vomiting, connective tissue disease, interstitial lung disease. PAST SURGICAL HISTORY: 1. Right rotator cuff repair. 2. Right breast biopsy, lumpectomy with lymph nodes - no reconstruction. 3. Bilateral total knee replacements, right knee revision. 4. Bilateral carpal tunnel releases and repeat bilateral. 5. Hemorrhoidectomy. 6. Tonsils and adenoids. 7. Hysterectomy. 8. Port-A-Cath placement and removed. 9. Bowel surgery, 08/2018. 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 REVIEW OF SYSTEMS: Night sweats, fever, fatigue, headaches, wears glasses, blurred vision, sore throat, shortness of breath, palpitations, shortness of [facility] [address] [place] [address] PAIN MANAGEMENT CONSULTATION Name: SAL GALLAGHER Room #: REG CLI Kaushik#: [id number] Admission: 10/03/18 ������������������ Attend Phys: Travis Zambrano MD Discharge: ������������������ Date of : 47 Report #: [id number] breath with walking, frequent coughing, nausea and vomiting, thyroid disease, diabetes, excessive thirst, hot and cold intolerance, frequent recurrent headaches, numbness and tingling sensation. DIAGNOSTIC DATA: MRI of the lumbar spine, dated 10/22/2018: 1. Advanced degenerative change with right convexity of the lumbar scoliosis. 2. There is severe central canal stenosis at L2-L3, L3-L4, L4-L5 levels, and moderate central canal stenosis at L5-S1. 3. Bilateral neural foraminal narrowing of various degrees. PAIN CLINIC ASSESSMENT/PQRS: 1. History of osteoarthritis in the right lower extremity, right upper extremity, and spine. 2. History of rheumatoid arthritis: The patient has rheumatoid arthritis changes in her hands. 3. Height 4 feet 10 inches, weight 132 pounds, BMI is 27.6. 4. Vital signs: Blood pressure 147/78, pulse 82, respiratory rate 18, room air saturation is 100%. 5. Pain intensity: 5-6/10. 6. Fall risk: The patient has not fallen in the last 3 months. She does use a cane. 7. Blood thinner: The patient is not on a blood thinning medication. 8. Hypertension: The patient is being treated for hypertension. 9. Opioid therapy greater than 6 weeks: The patient has been using gabapentin to help control the pain. The patient does take tramadol. 10. Risk assessment tool: Low for opioid use. 11. Functional assessment tool. 12. Recreational drug use: The patient denies use of recreational drugs. 13. Tobacco: The patient has never smoked. 14. Alcohol: The patient denies use of alcoholic beverages. PHYSICAL EXAMINATION: GENERAL: The patient is a white female. She appears her stated age. She is alert and oriented x 3. Affect is appropriate. Speech is fluent. HEENT: Normocephalic, atraumatic. Extraocular eye muscles intact. Sclerae nonicteric. Mucous membranes are moist. HEART: Regular rate. S1 and S2. LUNGS: Wheezing, rhonchi. ABDOMEN: Nontender. Bowel sounds present. No guarding. EXTREMITIES: Upper extremity muscle strength is judged to be 4/5. Muscle strength in lower extremities 4/5. The patient walks with use of a cane. She has left ankle ulcer. The patient will be seen in Wound Clinic. She has diabetes. Her blood sugars is 80-157. RECOMMENDATIONS: We discussed treatment options with the patient. At this juncture, we will continue with her medications. She does have an ulcer area in [address] [address] PAIN MANAGEMENT CONSULTATION Name: SAL GALLAGHER Room #: REG [facility].#: [id number] Admission: 10/03/18 ������������������ Attend Phys: Travis Zambrano MD Discharge: ������������������ Date of : 47 Report #: [id number] the left ankle. At this juncture, we discussed the need to have this taken care of. We will consider the use of an epidural steroid injection in the future. We explained that injection with high level of steroid may cause worsening of the wound. The patient has been given a script for Neurontin. She will continue with this medication. She will follow up in the future as her wound has been healed. At that point, we would then consider epidural steroid injection. She has had transforaminal epidural steroid injection in the past and seems to glean benefits from these. We would like to thank you for letting us participate in her care. We hope she continues to improve. ��������������������������������������������� ���������������������������������������� By: ��������������������������������������������� 1734 0532 Travis Zambrano MD /nt
[2018-10-03 11:03] VITALS: BP 147/78
--- NOTE | 2018-10-03 11:09 | NUR ---
Pain Clinic Assessment: 1. History of Osteoarthritis: Right Lower Extremity Right Upper Extremity SPINE History of Rheumatoid Arthritis: YES HANDS SWELL 2. Height: 4 ft. 10 in. 147.3 cm. Weight: 132.0 lb. oz. 59.875 kg. Patient's BMI: 27.6 3. Vital Signs: BP: 147/78 Pulse: 82 Resp: 18 Temp: 02 Sat: 100 ECG Mon: 4. Pain Intensity: 5-6 5. Fall Risk: Dizziness: N Needs help standing or walking: Y Fallen in the last 3 months: N Fall risk comments: USES CANE 6. Patient on Blood Thinner: None 7. History of Hypertension: Y 8. Opioid Therapy greater than 6 weeks: N Opiate Contract Signed: 9. Risk Assessment Tool Provided: 10. Functional Assessment Tool: 11. Recreational Drug Use: Never Drug Type: Tobacco Use: Never Smoker Tobacco Type: Amount or Packs/day: How Many Years: Alcohol Use: No Frequency: Quant:
== END ==
LOC: PAIN 06:59
DX: M48.061 Spinal stenosis, lumbar region without neurogenic claudication (principal); M54.16 Radiculopathy, lumbar region; Z79.899 Other long term (current) drug therapy

== ENCOUNTER → 2018-10-03 | Outpatient (CLI) | payer OTHER, MEDICARE | LOC: HYPER 08:02 | DX: E11.622 Type 2 diabetes mellitus with other skin ulcer (principal); I70.243 Atherosclerosis of native arteries of left leg with ulceration of ankle; L97.322 Non-pressure chronic ulcer of left ankle with fat layer exposed; I73.00 Raynaud's syndrome without gangrene; E11.51 Type 2 diabetes mellitus with diabetic peripheral angiopathy without gangrene; I10 Essential (primary) hypertension; M81.0 Age-related osteoporosis without current pathological fracture; M19.90 Unspecified osteoarthritis, unspecified site; M06.9 Rheumatoid arthritis, unspecified; R51 Headache; F41.9 Anxiety disorder, unspecified; F32.9 Major depressive disorder, single episode, unspecified; Z79.4 Long term (current) use of insulin; Z79.84 Long term (current) use of oral hypoglycemic drugs; Z85.3 Personal history of malignant neoplasm of breast; Z86.718 Personal history of other venous thrombosis and embolism ==

== ENCOUNTER → 2018-10-10 | Outpatient (CLI) | payer OTHER, MEDICARE | LOC: HYPER 07:42 | DX: E11.622 Type 2 diabetes mellitus with other skin ulcer (principal); I70.243 Atherosclerosis of native arteries of left leg with ulceration of ankle; L97.322 Non-pressure chronic ulcer of left ankle with fat layer exposed; E11.51 Type 2 diabetes mellitus with diabetic peripheral angiopathy without gangrene; I10 Essential (primary) hypertension; I73.00 Raynaud's syndrome without gangrene; G89.29 Other chronic pain; M81.0 Age-related osteoporosis without current pathological fracture; M06.9 Rheumatoid arthritis, unspecified; M19.90 Unspecified osteoarthritis, unspecified site; F41.9 Anxiety disorder, unspecified; F32.9 Major depressive disorder, single episode, unspecified; Z79.4 Long term (current) use of insulin; Z85.828 Personal history of other malignant neoplasm of skin; Z79.84 Long term (current) use of oral hypoglycemic drugs ==

== ENCOUNTER → 2018-10-17 | Outpatient (CLI) | payer OTHER, MEDICARE | LOC: HYPER 06:45 | DX: E11.622 Type 2 diabetes mellitus with other skin ulcer (principal); I70.243 Atherosclerosis of native arteries of left leg with ulceration of ankle; L97.322 Non-pressure chronic ulcer of left ankle with fat layer exposed; E11.51 Type 2 diabetes mellitus with diabetic peripheral angiopathy without gangrene; G89.29 Other chronic pain; I73.00 Raynaud's syndrome without gangrene; I10 Essential (primary) hypertension; I42.2 Other hypertrophic cardiomyopathy; M81.0 Age-related osteoporosis without current pathological fracture; M06.9 Rheumatoid arthritis, unspecified; F32.9 Major depressive disorder, single episode, unspecified; F41.9 Anxiety disorder, unspecified; Z85.3 Personal history of malignant neoplasm of breast; Z86.718 Personal history of other venous thrombosis and embolism; Z79.4 Long term (current) use of insulin; Z79.84 Long term (current) use of oral hypoglycemic drugs ==

== ENCOUNTER → 2018-10-22 | Outpatient (CLI) | payer OTHER, MEDICARE ==
[~2018-10-22] MED LIST changes: +DOXYCYCLINE 10100 MG PO
== END ==
LOC: HYPER 06:36
DX: E11.622 Type 2 diabetes mellitus with other skin ulcer (principal); I70.243 Atherosclerosis of native arteries of left leg with ulceration of ankle; L97.322 Non-pressure chronic ulcer of left ankle with fat layer exposed; E11.51 Type 2 diabetes mellitus with diabetic peripheral angiopathy without gangrene; I73.00 Raynaud's syndrome without gangrene; G89.29 Other chronic pain; I10 Essential (primary) hypertension; I42.2 Other hypertrophic cardiomyopathy; M81.0 Age-related osteoporosis without current pathological fracture; M06.9 Rheumatoid arthritis, unspecified; F32.9 Major depressive disorder, single episode, unspecified; F41.9 Anxiety disorder, unspecified; Z85.3 Personal history of malignant neoplasm of breast; Z86.718 Personal history of other venous thrombosis and embolism; Z79.4 Long term (current) use of insulin; Z79.84 Long term (current) use of oral hypoglycemic drugs

== ENCOUNTER → 2018-10-27 | Outpatient (CLI) | payer OTHER, MEDICARE ==
[~2018-10-27] VITALS: Ht 147.3 cm; Wt 59.0 kg
--- NOTE | 2018-10-28 15:06 | PATH ---
[facility] [place] [address] [address] PATHOLOGY RPT PROCEDURE Name: SAL KOROMA Room #: REG MAXIMILIAN Champ.#: [id number] ������������������ Admission: 10/27/18 ������������������ Date of : 47 Discharge: Report #: [id number] Path Case #: [id number] [facility] Accession Number: [id number] . 01 Material submitted: . colon - RANDOM COLON BX R/O IBD . 01 Clinical history: . Screening, R/O IBD . 02 Diagnosis: Large intestinal mucosa, random colon R/O IBD, endoscopic biopsy: - Mild focal cryptitis. Please see comment. - Negative for dysplasia or malignancy. (IUV:paul; 10/28/2018) QMS/10/28/2018 . 02 Comment: Sections of the colonic mucosa designated "random colon" show focal cryptitis, and a moderately cellular lamina propria composed predominantly of lymphocytes and plasma cells and occasional eosinophils. Surface ulceration is not identified. There are no crypt abscesses, granulomas or viral inclusions. Given the description, the differential diagnosis includes focal mild active colitis of self-limited etiology, bowel preparation, resolving episode of colitis, as well as medication/drug-induced colitis. Please correlate with clinical as well as endoscopic findings. (IUV:paul; 10/28/2018) . 02 Electronically signed: . Kristy Foreman MD, Pathologist NPI- [id number] . 01 Gross description: . The specimen is received in formalin, labeled "Sal Koroma, random colon biopsy". Received are eight segments of pale saldivar soft tissue ranging in size from 0.2 to 0.6 cm in maximum dimensions. The specimen is submitted entirely in cassette A1. (CAA; 10/27/2018) QAC/QAC . 02 Pathologist provided ICD-10: K62.89 . 02 CPT . 542975 Specimen Comment: A courtesy [place] [address] PATHOLOGY RPT PROCEDURE Name: SAL KOROMA Room #: REG CLI [facility]#: [id number] ������������������ Admission: 10/27/18 ������������������ Date of : 47 Discharge: Report #: [id number] Path Case #: [id number] Specimen Comment: [phone], . Specimen Comment: Report sent to / DR SANTIAGO Performed at: [address], [place], [place] [id number] MD Harish Soliman MD Phone: [phone] Performed at: [address] [id number] MD Kristy Foreman MD Phone: [phone]
== END | disposition home or self-care (01) ==
LOC: GI 08:38
DX: Z12.11 Encounter for screening for malignant neoplasm of colon (principal); K62.89 Other specified diseases of anus and rectum; E11.9 Type 2 diabetes mellitus without complications; K21.9 Gastro-esophageal reflux disease without esophagitis; F32.9 Major depressive disorder, single episode, unspecified; Z98.0 Intestinal bypass and anastomosis status; Z86.711 Personal history of pulmonary embolism; Z79.01 Long term (current) use of anticoagulants; Z85.3 Personal history of malignant neoplasm of breast; Z98.890 Other specified postprocedural states; Z90.710 Acquired absence of both cervix and uterus; Z79.899 Other long term (current) drug therapy; Z87.19 Personal history of other diseases of the digestive system
CPT/HCPCS: 62110; 62900

== ENCOUNTER → 2018-11-07 | Outpatient (CLI) | payer OTHER, MEDICARE ==
[~2018-11-07] MED LIST changes: +GENTAMICIN 0.1%15 G2 TOP
== END ==
LOC: HYPER 10-31 07:52
DX: E11.622 Type 2 diabetes mellitus with other skin ulcer (principal); L97.322 Non-pressure chronic ulcer of left ankle with fat layer exposed; E11.51 Type 2 diabetes mellitus with diabetic peripheral angiopathy without gangrene; L03.116 Cellulitis of left lower limb; I73.00 Raynaud's syndrome without gangrene; I10 Essential (primary) hypertension; M81.0 Age-related osteoporosis without current pathological fracture; M06.9 Rheumatoid arthritis, unspecified; R52 Pain, unspecified; F32.9 Major depressive disorder, single episode, unspecified; F41.9 Anxiety disorder, unspecified; Z79.4 Long term (current) use of insulin; Z79.84 Long term (current) use of oral hypoglycemic drugs; Z85.3 Personal history of malignant neoplasm of breast; Z86.718 Personal history of other venous thrombosis and embolism

== ENCOUNTER → 2018-11-12 | Outpatient (CLI) | payer OTHER, MEDICARE ==
[2018-11-12 08:55] VITALS: BP 113/46
[2018-11-12 10:10] VITALS: BP 124/51
[2018-11-12 10:15] VITALS: BP 113/46
--- NOTE | 2018-11-12 10:19 | NUR ---
HERE FOR 1ST OF 2 IRON INFUSIONS (INJECTAFER). REPORTS ONGOING FATIGUE, LOW ENERGY, WT LOSS AND OTHER ISSUES OVER THE LAST FEW MONTHS. 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 INJECTAFER COMPLETED OVER ONE HOUR WITH VSS UPON COMPLETION. WATCHING FOR A FULL 30 MINUTES PRIOR TO DISMISSAL. SCHEDULED TO RETURN AGAIN IN ONE WEEK.
[2018-11-12 10:33] VITALS: BP 119/46
== END ==
LOC: OPONC 02:15
DX: N18.9 Chronic kidney disease, unspecified (principal); D63.1 Anemia in chronic kidney disease; D50.9 Iron deficiency anemia, unspecified
CPT/HCPCS: 95000

== ENCOUNTER → 2018-11-19 | Outpatient (CLI) | payer OTHER, MEDICARE ==
[2018-11-19 14:05] VITALS: BP 135/87
[2018-11-19 15:15] VITALS: BP 129/58
[2018-11-19 15:40] VITALS: BP 129/57
--- NOTE | 2018-11-19 15:50 | NUR ---
IN FOR 2ND AND FINAL INJECTAFER INFUSION. REPORTS FEELING FINE FIRST COUPLE DAYS AFTER INJECTAFER GIVEN LAST WEEK ON SAT BUT HAD ONSET OF NAUSEA ON SAT THAT LASTED TIL SUN. NAUSEA RESOLVED THEN AWAKENED BOTH YESTERDAY AND TODAY WITH WOOZINESS WHICH WAS AT ITS WORST IN THE MORNING THEN RESOLVED DAY WORE ON. UNSURE WHY. NO OTHER ISSUES NOTED. NO NAUSEA TODAY, NO HEADACHE, BONE PAIN, ETC. NOTIFIED DR. SANTIAGO WHO GAVE ORDER FOR 1X DOSE IV SOLUMEDROL TODAY THEN OFFICE NURSE CALLED IN SCRIPT FOR ORAL ZOFRAN AT HOME IF NEEDED. PT STATES SHE WILL BE ABLE TO PICK THIS SCRIPT UP. ENCOURAGED TO TAKE AT ONSET OF NAUSEA IF NEEDED. DR. SANTIAGO GAVE OK TO PROCEED WITH DOSE #2 TODAY. VSS AT START, UPON COMPLETION AND AT 30 MIN POST INFUSION. TOLERATED TODAY'S DOSE WITHOUT NOTED SIDE EFFECT. DISMISSED IN STABLE CONDITION 40 MINUTES AFTER COMPLETION OF INFUSION.
== END ==
LOC: OPONC 01:55
DX: N18.9 Chronic kidney disease, unspecified (principal); D63.1 Anemia in chronic kidney disease; D50.9 Iron deficiency anemia, unspecified
CPT/HCPCS: 95000

== ENCOUNTER → 2018-11-21 | Outpatient (CLI) | payer OTHER, MEDICARE | LOC: HYPER 08:04 | DX: E11.622 Type 2 diabetes mellitus with other skin ulcer (principal); I70.233 Atherosclerosis of native arteries of right leg with ulceration of ankle; L97.322 Non-pressure chronic ulcer of left ankle with fat layer exposed; E11.51 Type 2 diabetes mellitus with diabetic peripheral angiopathy without gangrene; G89.29 Other chronic pain; I73.00 Raynaud's syndrome without gangrene; I10 Essential (primary) hypertension; I42.2 Other hypertrophic cardiomyopathy; M81.0 Age-related osteoporosis without current pathological fracture; M06.9 Rheumatoid arthritis, unspecified; F41.9 Anxiety disorder, unspecified; F32.9 Major depressive disorder, single episode, unspecified; Z86.718 Personal history of other venous thrombosis and embolism; Z79.4 Long term (current) use of insulin; Z79.84 Long term (current) use of oral hypoglycemic drugs ==

== ENCOUNTER → 2018-12-01 | Outpatient (CLI) | payer OTHER, MEDICARE | LOC: HYPER 06:57 | DX: E11.622 Type 2 diabetes mellitus with other skin ulcer (principal); I70.243 Atherosclerosis of native arteries of left leg with ulceration of ankle; L97.322 Non-pressure chronic ulcer of left ankle with fat layer exposed; R21 Rash and other nonspecific skin eruption; E11.51 Type 2 diabetes mellitus with diabetic peripheral angiopathy without gangrene; I73.00 Raynaud's syndrome without gangrene; G89.29 Other chronic pain; I10 Essential (primary) hypertension; I42.2 Other hypertrophic cardiomyopathy; M81.0 Age-related osteoporosis without current pathological fracture; M06.9 Rheumatoid arthritis, unspecified; F32.9 Major depressive disorder, single episode, unspecified; F41.9 Anxiety disorder, unspecified; Z86.718 Personal history of other venous thrombosis and embolism; Z85.3 Personal history of malignant neoplasm of breast; Z79.4 Long term (current) use of insulin; Z79.84 Long term (current) use of oral hypoglycemic drugs ==

== ENCOUNTER → 2018-12-08 | Outpatient (CLI) | payer OTHER, MEDICARE ==
[~2018-12-08] VITALS: Ht 147.3 cm; Wt 59.0 kg
--- NOTE | 2018-12-09 18:05 | PATH ---
[facility] [address] [place] [address] PATHOLOGY RPT PROCEDURE Name: SAL KOROMA Room #: REG MAXIMILIAN Oakes.#: [id number] ������������������ Admission: 12/08/18 ������������������ Date of : 47 Discharge: Report #: [id number] Path Case #: [id number] [facility] Accession Number: [id number] . 01 Material submitted: . stomach - GASTRIC POLYPS . 01 Clinician provided ICD-10: Z87.19 . 01 Clinical history: . Pre-OP DX: Hx Crohn's Post-OP DX: Gastric polyps . 02 Diagnosis: Polyps, gastric polyps, endoscopic biopsy: - Consistent with fundic gland polyps. - Negative for dysplasia. (IUV:paul; 12/09/2018) QMS/12/09/2018 . 02 Electronically signed: . Kristy Foreman MD, Pathologist NPI- [id number] . 01 Gross description: . Received in formalin labeled "Sal Koroma, gastric polyps," are 3 segments of saldivar soft tissue measuring 0.6 x 0.5 x 0.2 cm in aggregate dimensions and ranging from 0.1 to 0.3 cm in maximum dimension. The specimen is submitted entirely in cassette A1. (TSD; 12/08/2018) TOB/TOB . 02 Pathologist provided ICD-10: K31.7 . 02 CPT . 879933 Specimen Comment: A courtesy copy of this report has been sent to Specimen Comment: [phone], . Specimen Comment: Report sent to / DR SANTIAGO Performed at: [address] [id number] MD Harish Soliman MD Phone: [phone] Performed at: 02 [facility] [address] [place] [address] PATHOLOGY RPT PROCEDURE Name: SAL KOROMA Room #: REG CLI Champ.#: [id number] ������������������ Admission: 12/08/18 ������������������ Date of : 47 Discharge: Report #: [id number] Path Case #: [id number] [address] [place] [id number] MD Kristy Foreman MD Phone: [phone]
== END | disposition home or self-care (01) ==
LOC: GI 08:54
DX: K31.7 Polyp of stomach and duodenum (principal); K63.3 Ulcer of intestine; K21.9 Gastro-esophageal reflux disease without esophagitis; E11.22 Type 2 diabetes mellitus with diabetic chronic kidney disease; N18.9 Chronic kidney disease, unspecified; Z96.653 Presence of artificial knee joint, bilateral; Z98.890 Other specified postprocedural states; Z79.899 Other long term (current) drug therapy; Z98.0 Intestinal bypass and anastomosis status; Z88.2 Allergy status to sulfonamides; Z88.6 Allergy status to analgesic agent; Z88.8 Allergy status to other drugs, medicaments and biological substances; Z90.710 Acquired absence of both cervix and uterus
CPT/HCPCS: 62110; 62900

== ENCOUNTER → 2018-12-12 | Outpatient (CLI) | payer OTHER, MEDICARE | LOC: HYPER 08:09 | DX: E11.622 Type 2 diabetes mellitus with other skin ulcer (principal); L97.322 Non-pressure chronic ulcer of left ankle with fat layer exposed; E11.51 Type 2 diabetes mellitus with diabetic peripheral angiopathy without gangrene; L03.116 Cellulitis of left lower limb; I73.00 Raynaud's syndrome without gangrene; I10 Essential (primary) hypertension; I11.9 Hypertensive heart disease without heart failure; I43 Cardiomyopathy in diseases classified elsewhere; M81.0 Age-related osteoporosis without current pathological fracture; M06.9 Rheumatoid arthritis, unspecified; M19.90 Unspecified osteoarthritis, unspecified site; G89.29 Other chronic pain; R21 Rash and other nonspecific skin eruption; F41.9 Anxiety disorder, unspecified; F32.9 Major depressive disorder, single episode, unspecified; Z79.4 Long term (current) use of insulin; Z79.84 Long term (current) use of oral hypoglycemic drugs; Z85.3 Personal history of malignant neoplasm of breast; Z86.718 Personal history of other venous thrombosis and embolism ==

== ENCOUNTER → 2018-12-23 | Outpatient (CLI) | payer OTHER, MEDICARE | LOC: PUL 12-19 11:35 | DX: J84.9 Interstitial pulmonary disease, unspecified (principal); Z88.1 Allergy status to other antibiotic agents; Z88.8 Allergy status to other drugs, medicaments and biological substances ==

== ENCOUNTER → 2019-01-09 | Outpatient (CLI) | payer OTHER, MEDICARE | LOC: HYPER 07:01 | DX: E11.622 Type 2 diabetes mellitus with other skin ulcer (principal); L97.322 Non-pressure chronic ulcer of left ankle with fat layer exposed; E11.51 Type 2 diabetes mellitus with diabetic peripheral angiopathy without gangrene; L03.116 Cellulitis of left lower limb; I42.2 Other hypertrophic cardiomyopathy; I10 Essential (primary) hypertension; I73.00 Raynaud's syndrome without gangrene; M81.0 Age-related osteoporosis without current pathological fracture; M06.9 Rheumatoid arthritis, unspecified; M19.90 Unspecified osteoarthritis, unspecified site; G89.29 Other chronic pain; R51 Headache; R21 Rash and other nonspecific skin eruption; F41.9 Anxiety disorder, unspecified; F32.9 Major depressive disorder, single episode, unspecified; Z86.718 Personal history of other venous thrombosis and embolism; Z79.4 Long term (current) use of insulin; Z79.84 Long term (current) use of oral hypoglycemic drugs; Z85.3 Personal history of malignant neoplasm of breast ==

== ENCOUNTER → 2019-01-23 | Outpatient (CLI) | payer OTHER, MEDICARE | LOC: HYPER 06:49 | DX: E11.622 Type 2 diabetes mellitus with other skin ulcer (principal); I70.243 Atherosclerosis of native arteries of left leg with ulceration of ankle; L97.322 Non-pressure chronic ulcer of left ankle with fat layer exposed; L03.116 Cellulitis of left lower limb; E11.51 Type 2 diabetes mellitus with diabetic peripheral angiopathy without gangrene; R21 Rash and other nonspecific skin eruption; I73.00 Raynaud's syndrome without gangrene; G89.29 Other chronic pain; I10 Essential (primary) hypertension; I42.2 Other hypertrophic cardiomyopathy; M81.0 Age-related osteoporosis without current pathological fracture; M06.9 Rheumatoid arthritis, unspecified; F32.9 Major depressive disorder, single episode, unspecified; F41.9 Anxiety disorder, unspecified; Z85.3 Personal history of malignant neoplasm of breast; Z86.718 Personal history of other venous thrombosis and embolism; Z79.4 Long term (current) use of insulin; Z79.84 Long term (current) use of oral hypoglycemic drugs ==

== ENCOUNTER → 2019-03-06 | Outpatient (CLI) | payer OTHER, MEDICARE | LOC: HYPER 07:00 | DX: E11.622 Type 2 diabetes mellitus with other skin ulcer (principal); L97.322 Non-pressure chronic ulcer of left ankle with fat layer exposed; E11.51 Type 2 diabetes mellitus with diabetic peripheral angiopathy without gangrene; I11.9 Hypertensive heart disease without heart failure; I43 Cardiomyopathy in diseases classified elsewhere; L03.116 Cellulitis of left lower limb; I73.00 Raynaud's syndrome without gangrene; M81.0 Age-related osteoporosis without current pathological fracture; M06.9 Rheumatoid arthritis, unspecified; M19.90 Unspecified osteoarthritis, unspecified site; G89.29 Other chronic pain; R51 Headache; R21 Rash and other nonspecific skin eruption; F41.9 Anxiety disorder, unspecified; F32.9 Major depressive disorder, single episode, unspecified; Z79.4 Long term (current) use of insulin; Z79.84 Long term (current) use of oral hypoglycemic drugs; Z85.3 Personal history of malignant neoplasm of breast ==

== ENCOUNTER → 2019-03-27 | Outpatient (CLI) | payer OTHER, MEDICARE | LOC: HYPER 08:26 | DX: E11.622 Type 2 diabetes mellitus with other skin ulcer (principal); L97.322 Non-pressure chronic ulcer of left ankle with fat layer exposed; L03.116 Cellulitis of left lower limb; I73.00 Raynaud's syndrome without gangrene; E11.51 Type 2 diabetes mellitus with diabetic peripheral angiopathy without gangrene; I10 Essential (primary) hypertension; I73.9 Peripheral vascular disease, unspecified; I42.2 Other hypertrophic cardiomyopathy; G89.29 Other chronic pain; M81.0 Age-related osteoporosis without current pathological fracture; R21 Rash and other nonspecific skin eruption; M06.9 Rheumatoid arthritis, unspecified; M19.90 Unspecified osteoarthritis, unspecified site; F32.9 Major depressive disorder, single episode, unspecified; Z79.4 Long term (current) use of insulin; Z85.3 Personal history of malignant neoplasm of breast; Z86.718 Personal history of other venous thrombosis and embolism; Z79.84 Long term (current) use of oral hypoglycemic drugs ==

== ENCOUNTER → 2019-04-14 | Outpatient (CLI) | payer OTHER, MEDICARE ==
[2019-04-14 09:14] LABS: CREATININE 1.1 mg/dL (0.6-1.0)
== END ==
LOC: MRI 08:43
PROVIDERS: Specialist
DX: I89.0 Lymphedema, not elsewhere classified (principal); Z85.3 Personal history of malignant neoplasm of breast

== ENCOUNTER → 2019-04-17 | Outpatient (CLI) | payer OTHER, MEDICARE | LOC: HYPER 05:48 | DX: E11.622 Type 2 diabetes mellitus with other skin ulcer (principal); L97.322 Non-pressure chronic ulcer of left ankle with fat layer exposed; E11.51 Type 2 diabetes mellitus with diabetic peripheral angiopathy without gangrene; I73.00 Raynaud's syndrome without gangrene; I42.9 Cardiomyopathy, unspecified; M81.0 Age-related osteoporosis without current pathological fracture; M06.9 Rheumatoid arthritis, unspecified; M19.90 Unspecified osteoarthritis, unspecified site; F41.9 Anxiety disorder, unspecified; F32.9 Major depressive disorder, single episode, unspecified; Z79.4 Long term (current) use of insulin; Z79.84 Long term (current) use of oral hypoglycemic drugs; Z86.718 Personal history of other venous thrombosis and embolism ==

== ENCOUNTER 2019-06-29 13:12 | Inpatient (IN) | payer OTHER, MEDICARE ==
[~2019-06-29] VITALS: Ht 144.8 cm; Wt 57.6 kg
--- NOTE | ~2019-06-29 | HC ---
[facility] [place] [address] CONSULTATION Name: SAL GALLAGHER Room #: 404-P ADM IN M.R.#: [id number] Admission: 06/29/19 Attend Phys: Cliff York MD Discharge: Date of : 47 Report #: [id number] THIS REPORT FOR: //name// CC: Cliff York DATE OF SERVICE: 06/30/2019 HISTORY OF PRESENT ILLNESS: This is a 73-year-old female patient who was evaluated by me for confusion. She denies any confusion. She indicated that it is the other people who thinks she was confused. She did not have any focal neurological deficit. I called Dr. York and discussed the patient with him and I also reviewed the notes from Emergency Room. The patient gives a history that her family thinks that she has been confused. She claims they are trying to commit her. She believes none of her actions are rash. She believes she has not started taking any new medications. She indicates she does not drink any alcohol at all. REVIEW OF SYSTEMS: Indicated that she moved from her house to an apartment about 3 months ago. She said the house was falling apart and she could not afford the repairs and that is the reason she moved not because of any other reason. She denies any prior history of stroke. REVIEW OF SYSTEMS: Positive for rotator cuff tear, breast cancer, knee replacements on both sides, carpal tunnel, hemorrhoidectomy, tonsillectomy, colonoscopy, diabetes, hysterectomy, GERD. 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 She had a history of colon resection. This was a relevant 14-point review of systems. She was on a small dose of gabapentin, which has been discontinued. She indicates that she becomes very anxious when she is pushed to do things. She does not take any medication for anxiety. Otherwise, she is not complaining of any new eye, ENT, cardiac, respiratory, GI, , musculoskeletal, constitutional, dermatological, hematological, psychiatric, throat, allergic symptom associated with present symptomatology. She was somewhat short of breath on examination later on. PAST MEDICAL HISTORY: Negative for any stroke. FAMILY HISTORY: Negative for any early age stroke. SOCIAL HISTORY: She indicates she does not drink any alcohol or smoke. PHYSICAL EXAMINATION: Indicate that she is alert. She is responsive. She tells me it is July first. She could not name the president, but she was able to tell me what hospital she is in. Her speech looks intact. Cranial nerve examination 2-12 does not appear to be showing any definite abnormality. She moves all 4 extremities. Her position sense is intact. Reflexes are diminished. Tone is symmetrical. There is no cerebellar sign. I could not [facility] [address] [place] [address] CONSULTATION Name: AILEENSAL R Room #: 404-P [facility] IN M.R.#: [id number] Admission: 06/29/19 Attend Phys: Cliff York MD Discharge: Date of : 49 Report #: [id number] look at the patient's fundus. Pulses are difficult to feel. Cardiac examination is unremarkable. She does have some shortness of breath, which she indicate is are baseline. Her blood pressure is 93/40, respirations 16, pulse is 76, temperature is 98.1. LABORATORY DATA: White count is 7.8, her creatinine is 1.4, which is somewhat high, than her baseline. She had a sed rate done some time ago in 2014 and that was high. IMPRESSION: 1. History of altered mental status. I am not sure the etiology for this. We need to consider underlying dementia. For that, she will need a formal neuropsychological testing, which I ordered after talking to Dr. York. I also ordered a TSH, vitamin B12 and sed rate. With her mentation, I think family is concerned and taken and need to be addressed and hopefully, we can address after Dr. Menchaca, neuropsychologist see her. We will repeat a sed rate, and we will also go ahead and do an MRI to make sure she does not have any multi-infarct dementia, which requires secondary stroke prophylaxis. I will send a lipid profile on her anyway and I agree with your plan of holding gabapentin even if she is on low dose because of her kidney dysfunction. Thank you very much for this referral and if you have any question, please feel free to contact me. By: 0840 0919 Vinny Taylor MD /nt
--- NOTE | ~2019-06-29 | EEG ---
[facility] [place] [address] ELECTROENCEPHALOGRAM Name: SAL GALLAGHER Room #: 404-P ADM IN M.R.#: [id number] Admission: 06/29/19 Attend Phys: Cliff York MD Discharge: Date of : 49 Report #: [id number] THIS REPORT FOR: //name// CC: Cliff York DATE OF SERVICE: 06/30/2019 This patient is being evaluated for altered mental status. The patient's EEG was done by placing the electrodes by standard 10-20 system of electrode placement. Both referential and sequential montages were used for recording. Background activity in this patient's EEG is about 8-9 Hz and 30 microvolt. It is intermixed with theta range slowing on both sides. The patient became drowsy and that was associated with bilateral slowing. Photic stimulation was unremarkable. Throughout the record, no active epileptiform activity was noticed. IMPRESSION: This patient's EEG is intermixed with theta range slowing on both sides. That is a nonspecific abnormality, which can occur with encephalopathy, dementia, effect of psychotropic medication, etc. Clinical correlation is recommended. By: 0827 0854 Vinny Taylor MD /nt
[2019-06-29 13:14] VITALS: BP 120/32
[2019-06-29 13:44] LABS: CASTS None Seen /LPF (None Seen); CRYSTALS None Seen /LPF (None Seen); SQUAMOUS 0-3 Few /LPF (0-3); URINE BILIRUBIN NEGATIVE (Negative); URINE BLOOD 3+ (Negative); URINE CLARITY SL CLOUDY; URINE COLOR YELLOW; URINE GLUCOSE-RANDOM* NEGATIVE (Negative); URINE KETONES NEGATIVE (Negative); URINE LEUKOCYTES-REFLEX TRACE (Negative); URINE NITRITE-REFLEX NEGATIVE (Negative); URINE PROTEIN (DIPSTICK) 1+ (Negative); URINE RBC 3-10 Few /HPF (0-2); URINE SPECIFIC GRAVITY >= 1.030 (1.005-1.035); URINE UROBILINOGEN 0.2 E.U./dl (0.2-1.0); URINE WBC-REFLEX 0-5 Rare /HPF (0-5)
[2019-06-29] MEDS ORDERED: NEURONTIN100 MG PO (14:04)
[2019-06-29] MEDS ORDERED: IMURAN 50MG TAB50 M1 PO (14:05)
[2019-06-29 14:08] LABS: BASOPHILS 0.6 % (0.0-2.0); HEMATOCRIT 36.2 % (37.0-47.0); HEMOGLOBIN 12.3 gm/dL (12.0-15.0); LYMPHOCYTES 13.3 % (24.0-44.0); MCH 33.4 pg (26.0-34.0); MCHC 33.9 g/dL (28.0-37.0); MCV 98.6 fL (80.0-100.0); MONOCYTES 6.9 % (1.0-8.0); PLATELET COUNT 299 thou/uL (150-400); POLYS 77.2 % (36.0-66.0); RBC 3.67 mil/uL (4.20-5.00); RDW 16.4 % (10.5-14.5); WBC 7.8 thou/uL (4.0-11.0)
[2019-06-29 14:16] LABS: CALCIUM 10.5 mg/dL (8.5-10.1); CREATININE 1.4 mg/dL (0.6-1.0); POTASSIUM 3.8 mmol/L (3.5-5.1)
[2019-06-29 14:29] LABS: ALBUMIN 3.5 g/dL (3.4-5.0); TOTAL BILIRUBIN 0.6 mg/dL (<0.1-1.0)
[2019-06-29 17:16] VITALS: BP 93/47
[2019-06-29 17:45] VITALS: BP 101/41
[2019-06-29 18:00] VITALS: BP 103/57
[2019-06-29 18:47] VITALS: BP 103/57
--- NOTE | 2019-06-29 18:48 | NUR ---
ASSUMED CARE OF THE PT AT 1800. PT IS A&Ox4. FALL PRECAUTIONS ARE IN PLACE. SKIN IS INTACT WITH NO WOUNDS. LUNGS ARE CLEAR AND PULSES ARE STRONG. BED IS IN THE LWOEST POSITION AND CALL LIGHT IS WITHIN REACH. WILL CONTINUE TO MONITOR THE PT.
[2019-06-29 19:25] VITALS: BP 113/43
--- NOTE | 2019-06-29 21:37 | NUR ---
ADMISSION ASSESSMENT COMPLETED. PT IS ALERT AND ORIENTED. A LITTLE FORGETFUL. PT WAS FRUSTRATED AT THE START OF ADMISSION PROCESS JUST BECAUSE SHE FELT EVERYONE IS TELLING HER WHAT TO DO INCLUDING HER DAUGHTERS. LISTENING EAR PROVIDED AND PT FINALLY STARTED LAUGHING AND CRACKING JOKES.SHE IS IMPULSIVE. FALL EDUCATION PROVIDED-BED ALARM IN PLACE. VSS. PT C/O OF RLE PAIN MARTINEZ AFTER AMBULATING.AFEBRILE. THE IV FLUID BAG THAT WAS HUNG IN ER IS STILL INFUSING. ACCUCHECK DONE. PT DOES NOT WANT ANYTHING TO EAT. PT IS NOW RESTING QUIETLY IN BED. CALL LIGHT WITHIN REACH. WILL CONTINUE WITH POC TILL EOS.
[2019-06-30 04:59] VITALS: BP 93/40
--- NOTE | 2019-06-30 05:59 | NUR ---
PT TRANSFERRED TO RM 404 VIA W/CHAIR. SHE LEFT AROUND 0530 HRS.
--- NOTE | 2019-06-30 07:07 | NUR ---
Pt transferred approxiamtely 0530 from 4S. A/OX4 with forgetfulness notede. Oriented to the unit and call light system and agrees to call for help. Up with assist of 1 to BSC. Denies pain on assessment. Fall precautions in place.
[2019-06-30 07:32] VITALS: BP 104/42
[2019-06-30 09:43] LABS: TSH 0.572 uIU/mL (0.358-3.740)
--- NOTE | 2019-06-30 09:59 | EKG ---
[address] [place] [address] ELECTROCARDIOGRAM REPORT Name: JOSE DE JESUS GALLAGHERNE Kaushik Room #: 404-P ADM IN M.R.#: [id number] Admission: 06/29/19 Attend Phys: Cliff York MD Discharge: Date of : 49 Report #: [id number] THIS REPORT FOR: //name// [facility] ED Test Date: 2019-06-29 Test Time: 13:55:25 Pat Name: SAL GALLAGHER Department: Room: 404 Gender: F Subpoena Server: ALBERTO : 1945 Requested By: Madonna Carpio Order Number: [id number] MD: Willi Hudson Measurements Intervals [place] Rate: 85 P: 73 AL: 185 QRS: 55 QRSD: 80 T: 2 QT: 349 QTc: 415 Interpretive Statements Sinus rhythm Nonspecific T wave abnormality Compared to ECG 01/04/2018 00:22:55 T-wave abnormality now present Electronically Signed On 06-30-2019 9:58:50 FIELD CANE SCALE CLERK by Willi Hudson [email or web address] <ELECTRONICALLY SIGNED> By: Willi Hudson MD, [facility] 06/30/19 0958 [id number] [id number] Willi Hudson MD, [facility] /EPI
--- NOTE | 2019-06-30 10:51 | NUR ---
INITIAL ASSESSMENT: SW reviewed chart and spoke with nursing and attending physician. Pt was admitted from home due to recent fall/confusion. SW met with pt at bedside. Introduced role of SW. Pt is alert/orientated. Pt states she lives at home alone. Pt's dtrs live close by and able to assist as needed. Pt's PCP is Dr. Cliff York. Pt uses a walker when outside of her home. Pt has used [facility] in the past. Pt may discharge home later today. No needs anticipated. Pt's family to provide transportation home. SW is available to assist should needs arise.
[2019-06-30 15:02] VITALS: BP 96/47
--- NOTE | 2019-06-30 18:02 | NUR ---
PT ALERT AND ORIENTED TIMES THREE WITH PERIODS OF CONFUSION. VSS, IVF INFUSING PER ORDER. PT C/O PAIN PRN PAIN MEDICATIONS GIVEN WITH GOOD RELIEF. PT TOLERATES MEDS AND MEALS. PT UP TO BSC WITH ASSIST OF ONE. PT DAUGHTER AT BEDSIDE THIS AFTERNOON. PT SLOWLY PRGRESSING TOWRADS POC GOALS.
[2019-06-30 19:21] VITALS: BP 110/47
--- NOTE | 2019-07-01 04:52 | NUR ---
Assumed pt care at 1900. Pt A/OX3 forgetfulness noted. Up with Assist of 1 to BSC/bathroom. C/o pain to right hip medicated with Tramadol per request with relief reported. Continent of B&B. VSS.IVF infusing without problems. Fall precautions in place,needs reminders to call for help before getting OOB. Call light/personal items within reach. Will continue to monitor pt.
[2019-07-01 06:39] LABS: CHOLESTEROL 160 mg/dL (<200); HDL CHOLESTEROL 56 mg/dL (>40); LDL CHOLESTEROL 93 mg/dL (<100); TC:HDL 2.9 Ratio (Not establshd); TRIGLYCERIDE 58 mg/dL (<150); VLDL 12 mg/dL (<40)
[2019-07-01 07:40] VITALS: BP 142/61
[2019-07-01 09:07] LABS: CALCIUM 9.6 mg/dL (8.5-10.1); CREATININE 1.1 mg/dL (0.6-1.0); POTASSIUM 3.9 mmol/L (3.5-5.1)
[2019-07-01 09:20] VITALS: BP 142/61
[2019-07-01 14:00] VITALS: BP 104/52
--- NOTE | 2019-07-01 19:57 | NUR ---
ASSUMED CARE OF PATIENT AT 0715, PATIENT ALERT X 3 WITH PERIODS OF CONFUSION. PATIENT C/O PAIN WITH RIGHT HIP AND SCIATIC NERVE RIGHT UPPER BACK. THIS RN NOTIFIED DR SANTIAGO, RECEIVED NEW ORDER FOR LIDOCAINE PATCH. PATIENT WAS GIVEN TRAMADOL 1 TABLET X THIS SHIFT, SHE REFUSED HYDROCODONE. C/O RIGHT LEG NUMBNESS. PATIENT HAS LEFT AC IV, BUT NOT WORKING. NEW IV LEFT WRIST, WITH NS AT 100CC/HR AND SHE RECEIVED 1 IV ANTIBIOTIC THIS SHIFT. PATIENT WAS UP TO THE CHAIR X 2 THIS SHIFT, UP WITH [address] SANTIAGO HERE THIS AM, POSSIBLE DISCHARGE TO HOME TOMORROW.
[2019-07-01 21:00] VITALS: BP 120/51
--- NOTE | 2019-07-02 03:39 | NUR ---
ASSUMED CARE OF PATIENT AT APPROX. 2044. ASSESSMENT CHARTED. LANTUS HELD FOR FSBS BELOW 100. PATIENT IS ALERT AND ORIENTED AND DOES NOT SEEM FORGETFUL THIS SHIFT. VITAL SIGNS ARE STABLE AND O2 SATS ARE EXCELLENT ON RA. PATIENT VOICES RADIATING PAIN ON HER BACK AND THIGH AND RATES IN A 4/10. PATIENT WAS UP TO [facility] WITH STAND-BY ASSISTANCE AND TOLERATED WELL. HER URINE OUTPUT IS ADEQUATE. PATIENT STILL HAS A LINGERING NON-PRODUCTIVE COUGH; LUNG SOUNDS ARE CTA AND PATIENT DENIES TROUBLE BREATHING. PATIENT HAS BEEN CALLING OUT FOR ASSISTANCE; FALL PRECAUTIONS ARE IN PLACE. PER SW NOTE, PATIENT TO BE DISCHARGED TODAY AND TO FOLLOW UP W A NEUROLOGIST FOR DEMENTIA CARE. IV FLUIDS STILL INFUSING AT 100/HR W NO ISSUES. PATIENT VOICES NO OTHER CONCERNS. WILL CONTINUE TO MONITOR AND FOLLOW PLAN OF CARE.
[2019-07-02 08:23] VITALS: BP 137/66
[2019-07-02] MEDS ORDERED: CEFDINIR300 MG PO (09:21)
[2019-07-02] MEDS ORDERED: HYDROCODON-ACE1 EAC7 PO (09:21)
[2019-07-02 10:01] VITALS: BP 137/66
--- NOTE | 2019-07-02 10:06 | NUR ---
ASSUMED CARE AT 0700, PT AOX4, PAIN IN RIGHT HIP CONTROLLED BY PAIN ANALGESIC AND LIDOCAIN PATCH. PT VSS, NO INSULIN GIVEN THIS AM. PT CALLS APPROPRIATELY, DAUGHTER WILL NON CATEG[employer]ICAL [employer] TO TRANSPORT HOME AROUND NOON TODAY. WILL CONTINUE TO MONITOR PT.
[2019-07-02 10:18] VITALS: BP 137/66
--- NOTE | 2019-07-02 10:32 | NUR ---
SW reviewed chart and spoke with nursing. Awaiting neuropsych evaluation per attending physician. Plan is for pt to discharge home when medically stable. LYNN is following to assist as needed with discharge planning.
--- NOTE | 2019-07-05 12:39 | HC ---
[facility] [place] [address] CONSULTATION Name: SAL GALLAGHER Room #: 404-P [facility] IN .R.#: [id number] Admission: 06/29/19 Attend Phys: Cliff York MD Discharge: 07/02/19 Date of : 49 Report #: [id number] THIS REPORT FOR: //name// CC: Cliff York DATE OF SERVICE: 07/01/2019 ATTENDING PHYSICIAN: Cliff York M.D. CONSULTATNT: Cliff Johnston, PhD CLINICAL PRESENTATION: The patient is a 73-year-old female admitted to the [facility] through the Emergency Room accompanied by her daughter with confusion and disorienttion. Her medical problem list included abdominal pain, acute kidney injury, back pain, chest pain, chronic kidney disease, colonic obstruction, confusion, constipation, fall, flu syndrome, hip pain, hyperglycemia, left hip pain, lower abdominal pain, nausea and vomiting and uncontrolled diabetes mellitus. A complete description of her medical condition and history can be found in her medical record. Neuropsychological consultation was requested to provide assistance in the assessment of cognitive and emotional status and to provide recommendations and services. Prior to this most recent medical event, she was living independently in her own home. She reports having moved into a new apartment in March 2019. A previous episode of confusion is described about 2 years ago. Prior to this most recent hospitalization, she is reported to have been driving and independent with instrumental activities of daily living. The patient has 2 children that live in the [place] area. She is a high school graduate. 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 The patient has 9 siblings. Increased family stress associated with minimal support from children are reported. A complete summary of her medical condition, history and medications can be found in her medical record. Neuropsychological consultation was requested to provide assistance in the assessment of cognitive and emotional status and to provide recommendations and services. TECHNIQUES UTILIZED: Clinical interview, review of medical records, staff consultation and behavioral observation, mini mental status exam 2 standard version, clock drawing and verbal fluency assessment (letter and category). EXAMINATION FINDINGS: The patient was alert and cooperative with the assessment. She accurately described her initial presentation as confusion. During the interview she was tearful as she described conflict with her daughters. She does not report a prior history of treatment for anxiety or depression. However, current feelings of anxiety and depression are reported. [address] [address] CONSULTATION Name: SAL GALLAGHER Room #: 404-P [facility] IN M.R.#: [id number] Admission: 06/29/19 Attend Phys: Cliff York MD Discharge: 07/02/19 Date of : 49 Report #: [id number] There is no prior history of substance abuse. She also reports difficulty with memory and decreased appetite. Her performance on the MMSE 2 brief version was extremely low with a raw score of 12/16, which is a T score of 28 and percentile rank of 1. She was 3/3 for initial registration, 3/5 for orientation to time, 4/[address] and 2/3 for immediate recall of 3 items after a brief time delay and distraction. Performance on the MMSE 2 standard version was in the borderline range with a raw score 23/30, which is a T score of 34 and percentile rank of 5. She was 3/5 for serial sevens, 2/2 for naming, 1/1 for repetition, 3/3 for auditory comprehension. She could read and follow a single command and write a sentence. The patient was unable to accurately copy a simple geometric design. The patient was unable to set the hands of a clock at a designated time. She was able to draw they clock, but entered the hands as if they were spokes on a wheel. Letter fluency was in the borderline range with a raw score of 13, T score 35 and percentile rank of 7. Category fluency was extremely low with a raw score of 14, T score 20, percentile rank of less than 1. Overall, total fluency was extremely low with a raw score of 27, T score 28, percentile rank of less than 1. The patient is presenting with moderate to severe deficits in cognitive functioning. Symptoms of anxiety and depression are also suggested. DIAGNOSTIC IMPRESSION: Major neurocognitive disorder (dementia), unspecified, without behavior disorder -- likely in the mild range of severity. Unspecified anxiety disorder with depression. RECOMMENDATIONS: The patient would benefit from a more thorough neuropsychological evaluation to clarify cognitive status following discharge. At this time, moderate to severe deficits are suggested and indicate a major neurocognitive disorder with Alzheimer type features. However, followup neuropsych assessment is recommended to clarify the severity of cognitive status. A treatment program for neurocognitive disorder is likely to be indicated. Increased environmental support will likely be necessary for safety. Assistance in the management of medication, finances and nutrition are suggested. Driving is a safety concern. [facility] [address] [place] [address] CONSULTATION Name: SAL GALLAGHER Room #: 404-P DIS IN Champ.#: [id number] Admission: 06/29/19 Attend Phys: Cliff York MD Discharge: 07/02/19 Date of : 49 Report #: [id number] Thank you very much for allowing me to provide the consultation on this patient. <ELECTRONICALLY SIGNED> By: Cliff Johnston, PhD 07/05/19 1239 1341 42 Cliff Johnston, PhD /nt
== END 2019-07-02 12:39 | disposition home or self-care (01) | DRG 682 ==
LOC: ER 13:12 → 4N 17:34 → 4S 17:34 → EROBS 17:34 → 4S 17:45 → 4N 06-30 06:11 → ENTRNSPT 07-02 12:41
PROVIDERS: Emergency Medicine; Psychiatry & Neurology Neuromuscular Medicine; ADMIT Family Medicine
DX: N17.9 Acute kidney failure, unspecified (principal); G93.41 Metabolic encephalopathy; N39.0 Urinary tract infection, site not specified; B02.29 Other postherpetic nervous system involvement; Z96.651 Presence of right artificial knee joint; E11.9 Type 2 diabetes mellitus without complications; K21.9 Gastro-esophageal reflux disease without esophagitis; F01.50 Vascular dementia, unspecified severity, without behavioral disturbance, psychotic disturbance, mood disturbance, and anxiety; F32.9 Major depressive disorder, single episode, unspecified; F41.9 Anxiety disorder, unspecified; B02.9 Zoster without complications; B96.20 Unspecified Escherichia coli [E. coli] as the cause of diseases classified elsewhere; M16.10 Unilateral primary osteoarthritis, unspecified hip; F03.90 Unspecified dementia, unspecified severity, without behavioral disturbance, psychotic disturbance, mood disturbance, and anxiety; Z90.710 Acquired absence of both cervix and uterus; Z88.6 Allergy status to analgesic agent; Z88.2 Allergy status to sulfonamides; Z88.8 Allergy status to other drugs, medicaments and biological substances; Z28.21 Immunization not carried out because of patient refusal
CPT/HCPCS: 10091; 10195

== ENCOUNTER → 2019-07-07 | Outpatient (CLI) | payer OTHER, MEDICARE ==
[~2019-07-07] MED LIST changes: +HYDROCODON-ACE1 EAC7 PO; +NEURONTIN100 MG PO
--- NOTE | 2019-07-13 22:28 | PFR/MVV ---
[facility] [place] [address] PULMONARY FUNCTION MVV/REPORT Name: SAL GALLAGHER Room #: REG CL Champ.#: [id number] Admission: 07/07/19 Attend Phys: Physician not on staff Discharge: Date of : 49 Report #: [id number] THIS REPORT FOR: //name// >> SPIROMETRY: (BTPS) Height: 60 in cm Weight: 130 lbs kg Exam Date: 07/07/19 PRE-RX POST-RX PRED BEST %PRED BEST %PRED %CHG FVC LITERS . 2.34 . 1.53 . 65 . 1.35 . 58 . -12 FEV1 LITERS . 1.63 . 0.74 . 45 . 0.82 . 50 . 11 FEV1/FVC % . 72 . 48 . 67 . 61 . 85 . 26 KNZ34-45% L/Sec . 2.02 . 0.18 . 9 . 0.20 . 10 . 14 PEF L/SEC . 4.95 . 2.70 . 55 . 2.96 . 60 . 10 FEF50/FIF50 UNITLESS . <1.00 . 0.02 . . 0.66 . . 2809 MVV L/Min . 83 . 45 . 54 f 1/Min . . 155 . >> LUNG VOLUMES: (BTPS) PRE-RX POST-RX PRED AVG %PRED AVG %PRED %CHG VC Liters . 2.34 . 2.95 . 126 . . . TLC Liters . 4.00 . 4.73 . 118 . . . RV Liters . 1.62 . 1.78 . 110 . . . RV/TLC % . 41 . 38 . 93 . . . FRC [address] Liters . 2.36 . 2.37 . 100 . . . FRC N2 Liters . 2.36 . . . . . ERV Liters . 0.77 . 0.59 . 76 . . . IC Liters . 1.54 . 1.47 . 95 . . . >> DIFFUSION: DLCO ml/Min/mmHg . 16.2 . 5.1 . 31 . . . DL Chris ml/Min/mmHg . 16.2 . 5.1 . 31 . . . DLCO/VA ml/Min/mmHg . 3.53 . 2.61 . 74 . . . VA Liters . . 1.94 . . . . COMMENTS: COMMENTS: >> RESISTANCE: [facility] [address] [place] [address] PULMONARY FUNCTION MVV/REPORT Name: GALLAGHERSAL Room #: REG [facility].#: [id number] Admission: 07/07/19 Attend Phys: Physician not on staff Discharge: Date of : 49 Report #: [id number] PRE-RX PRED AVG %PRED Raw Total cmH20/L/Sec . . 4.81 . Raw Insp cmH20/L/Sec . . 3.55 . Raw Exp cmH20/L/Sec . . 3.68 . Raw cmH20/L/Sec . 1.65 . 1.43 . 87 Gaw L/Sec/cmH20 . 0.566 . 0.700 . 124 sRaw cmH20 Sec . 3.90 . 3.37 . 86 sGaw l/cmH20 Sec . 0.257 . 0.297 . 116 Vtq Liters . . 2.36 . # = OUTSIDE 95% CONFIDENCE INTERVAL CALIBRATION: PRED: 3.00 ACTUAL: EXP 3.01 INSP 3.02 [facility]- N-1804-4 >> INTERPRETATION/IMPRESSION: CC: SERENITY York Physician staff PULMONARY FUNCTION STUDIES PULMONARY FUNCTION STUDIES: FEV1 is 0.74 liters (45%), FVC is 1.53 liters (65%), FEV1/FVC ratio is 48%. FEV1 increases to 0.82 liters (11% change). Total lung capacity is 4.73 liters (118%). RV is 1.78 liters (110%). Diffusing capacity is 31%. IMPRESSION: Pulmonary function studies are consistent with severe obstructive airflow defect with an intermediate response to bronchodilator therapy. Diffusing capacity is severely decreased. Lung volumes are normal. <ELECTRONICALLY SIGNED> By: Mika Buck MD 07/13/19 2228 Mika Buck MD /nt
== END ==
LOC: PUL
DX: J84.9 Interstitial pulmonary disease, unspecified (principal)

== ENCOUNTER → 2019-07-08 | Outpatient (CLI) | payer OTHER, MEDICARE ==
[~2019-07-08] VITALS: Ht 147.3 cm; Wt 57.9 kg
[2019-07-08 08:53] VITALS: BP 104/52
--- NOTE | 2019-07-08 09:22 | NUR ---
Pain Clinic Assessment: 1. History of Osteoarthritis: Right Lower Extremity Right Upper Extremity SPINE History of Rheumatoid Arthritis: HANDS SWELL 2. Height: 4 ft. 10 in. 147.3 cm. Weight: 127.6 lb. oz. 57.879 kg. Patient's BMI: 26.7 3. Vital Signs: BP: 104/52 Pulse: 84 Resp: 16 Temp: 02 Sat: 96 ECG Mon: 4. Pain Intensity: 4 5. Fall Risk: Dizziness: N Needs help standing or walking: Y Fallen in the last 3 months: N Fall risk comments: USES CANE 6. Patient on Blood Thinner: None 7. History of Hypertension: Y 8. Opioid Therapy greater than 6 weeks: N Opiate Contract Signed: 9. Risk Assessment Tool Provided: 10. Functional Assessment Tool: 11. Recreational Drug Use: Never Drug Type: Tobacco Use: Never Smoker Tobacco Type: Amount or Packs/day: How Many Years: Alcohol Use: No Frequency: Quant:
--- NOTE | 2019-07-22 16:47 | HPC ---
[facility] [address] [place] [address] PAIN MANAGEMENT CONSULTATION Name: SAL GALLAGHER Room #: REG MAXIMILIAN Lambert#: [id number] Admission: 07/08/19 Attend Phys: Travis Zambrano MD Discharge: Date of : 49 Report #: [id number] THIS REPORT FOR: //name// CC: Travis York DATE OF SERVICE: 07/08/2019 CHIEF COMPLAINT: Still having some pain down in my right leg." HISTORY: The patient is a 73-year-old female who has been seen in the pain clinic because of lumbar radiculopathy. She has undergone epidural steroid injections in the past and gleaned benefits from these. She returns today indicating that her pain has increased. She rates it as a 4/10. It involves the low back and radiates down to the right leg to the level of her knee. Notes that there is a stabbing, sharp pain. Standing is problematic. Walking is more problematic. She has been using massage as well as medications. Icy Hot sometimes can provide some benefit. She denies any new problems with bowel or bladder function. She has returned today for an epidural injection. ALLERGIES: SULFA, CODEINE, DOCETAXEL. CURRENT MEDICATIONS: Gabapentin 100 mg b.i.d., albuterol 2 puffs p.r.n., tramadol 50 mg q. 6 hours p.r.n., Aleve 220 mg, Lantus 10 units subcutaneous as directed, vitamin D3 1000 units 2 capsules daily, Symbicort 160/4.5 one puff, hydrochlorothiazide 25 mg, metformin 500 mg b.i.d., Vasotec 10 mg. PAIN CLINIC ASSESSMENT AND PQRS: 1. History of osteoarthritis with right lower extremity and right upper extremity pain, osteoarthritic changes in her spine. 2. The patient has a history of arthritis involving her hands with swelling. 3. Height 4 feet 10 inches, weight 127 pounds, BMI is 26.7. 4. Vital Signs: Blood pressure 104/52, pulse 84, respiratory rate 16, room air saturation 96%. 5. Pain intensity 10/08. 6. Fall history: The patient has not fallen in the last 3 months, but uses a cane. 7. Blood thinner. The patient is not on a blood thinning medication. 8. Hypertension. The patient is being treated for hypertension. 9. Opioids greater than 6 weeks. The patient received medication from one source. 10. Risk assessment tool, low for opioid use. 11. Functional assessment tool. 12. Recreational drug use: The patient denies. 13. Tobacco: The patient has never smoked. 14. Alcohol: The patient denies use of alcoholic beverages. [address] [address] PAIN MANAGEMENT CONSULTATION Name: SAL GALLAGHER Room #: REG CL Lambert#: [id number] Admission: 07/08/19 Attend Phys: Travis Zambrano MD Discharge: Date of : 49 Report #: [id number] PHYSICAL EXAMINATION: GENERAL: The patient is a well-developed, well-nourished white female. Appears her stated age of [age] years old. She is alert and oriented x 3. Her affect is appropriate. Speech is fluent. HEENT: Normocephalic, atraumatic. Extraocular eye muscles intact. Sclerae nonicteric. Mucous membranes are moist. NECK: Without adenopathy or JVD. LUNGS: Generally clear to auscultation. ABDOMEN: Nontender. Bowel sounds, no guarding. EXTREMITIES: Upper extremity muscle strength judged to be 4/5 for the major muscle groups in the upper extremity. He has muscle strength in the lower extremity 4/5. The patient walks with a cane. Has had an ankle ulcer on the left side in the past. The patient has been seen in the past in the wound clinic because of diabetes. RECOMMENDATIONS: We discussed treatment options with the patient. Risks and benefits of an epidural steroid injection were discussed. The patient has significant narrowing in the back area and I think the most appropriate procedure would be a transforaminal approach. This has been discussed with the patient. The possible complication of the procedure, which could include but are not limited to infection, worsening of pain, no improvement in pain, bleeding and nerve damage were discussed. The patient elects to proceed. She will monitor her blood sugar. PROCEDURE NOTE: The patient was taken to the procedure area. She was then assisted in getting on the examination table. Her back was sterilely prepped with a Betadine solution. Fluoroscopy using anterior, posterior as well as lateral viewing were implemented. The patient's back at the L3-L4 area was identified. A 0.25% bupivacaine was infiltrated into this area. Using a 25-gauge needle. A 22-gauge spinal needle was then advanced into the appropriate position using fluoroscopy. A total of 80 mg Depo-Medrol, 40 mg triamcinolone was injected. The patient tolerated the procedure well. She remained in the Pain Clinic for an appropriate amount of time. 24 seconds fluoroscopy time was used for the injection. We would like to thank you for letting us participate in her care. We hope she continues to improve. <ELECTRONICALLY SIGNED> By: Travis Zambrano MD 07/22/19 1647 0841 1514 Travis Zambrano MD /LEVI
== END | disposition home or self-care (01) ==
LOC: PAIN 07-03 06:48
DX: M54.16 Radiculopathy, lumbar region (principal); G89.29 Other chronic pain; I12.9 Hypertensive chronic kidney disease with stage 1 through stage 4 chronic kidney disease, or unspecified chronic kidney disease; E11.22 Type 2 diabetes mellitus with diabetic chronic kidney disease; N18.9 Chronic kidney disease, unspecified; Z98.890 Other specified postprocedural states; Z79.899 Other long term (current) drug therapy; Z88.2 Allergy status to sulfonamides; Z88.8 Allergy status to other drugs, medicaments and biological substances

== ENCOUNTER → 2019-07-16 | Outpatient (CLI) | payer OTHER, MEDICARE | LOC: BC 09:33 | DX: Z12.31 Encounter for screening mammogram for malignant neoplasm of breast (principal) ==

== ENCOUNTER → 2019-11-27 | Outpatient (CLI) | payer OTHER, MEDICARE ==
[~2019-11-27] VITALS: Ht 147.3 cm; Wt 60.8 kg
[~2019-11-27] MED LIST changes: +BAYER BACK & B1 EACH PO; +celexa PO
--- NOTE | ~2019-11-27 | HPC ---
[facility] [place] [address] [place] [address] PAIN MANAGEMENT CONSULTATION Name: SAL GALLAGHER Room #: REG MAXIMILIAN Oakes.#: [id number] Admission: 11/27/19 Attend Phys: Travis Zambrano MD Discharge: Date of : 49 Report #: [id number] THIS REPORT FOR: cc: Cliff York MD, Neal A. MD Brown,Travis Borrero MD ~ CC: Travis York DATE OF SERVICE: 11/27/2019 CHIEF COMPLAINT: Headache pain. HISTORY: The patient is a 73-year-old female who has been referred to the pain clinic. She has been having pain in the occipital area. Palpation of the left side sometimes helpful. She has noted pain from the posterior portion of her neck to behind her ear, which has radiated to the top of her head, frontal area and sometimes some discomfort behind her eye. This has been more ongoing for the last 2 months. She denies any trauma. She notes that this pain can be problematic. She rates it as a 5/10. ALLERGIES: SULFA, CODEINE, AND DOCETAXEL. CURRENT MEDICATIONS: Celexa 40 mg, David aspirin/caffeine, Imuran 50 mg b.i.d., gentamicin ointment 1% left ankle wound, omeprazole 40 mg, ProAir/albuterol 2 puffs every 4 hours p.r.n., Symbicort 160/4.5 and metformin 500 mg b.i.d. PAIN CLINIC ASSESSMENT AND PQRS: 1. The patient has some osteoarthritic changes in her low back area. She is not being treated for rheumatoid arthritis. She does have a history of arthritis involving her hands with swelling. 2. Height 4 feet 10 inches, weight 130 pounds, BMI is 28. 3. Vital Signs: Blood pressure 149/70, pulse 72, respiratory rate 20, room air saturation 98%. 4. Pain intensity 5/10. 5. Fall risk. The patient uses a cane. 6. Blood thinner. The patient is not on a blood thinning medication. 7. Hypertension. The patient is being treated for hypertension. 8. Opioids greater than 6 weeks. The patient receives medication from one source. 9. Risk assessment tool, low. 10. Functional assessment tool reviewed. 11. Recreational drug use. The patient denies. 12. Tobacco: The patient has never smoked. 13. Alcohol. The patient denies use of alcoholic beverages. [address] [address] PAIN MANAGEMENT CONSULTATION Name: SAL GALLAGHER Room #: REG CLI [facility]#: [id number] Admission: 11/27/19 Attend Phys: Travis Zambrano MD Discharge: Date of : 49 Report #: [id number] PHYSICAL EXAMINATION: GENERAL: The patient is a well-developed, well-nourished white female. Appears her stated age of 73 years. She is alert and oriented x 3. Her affect is appropriate. Speech is fluent. HEENT: Normocephalic, atraumatic. Extraocular eye muscles intact. Sclerae nonicteric. Mucous membranes are moist. The patient has pain and discomfort in the left occipital area. Palpation in the area of the great occipital nerve causes the patient to state that this is the area of her pain and reproduces it. LUNGS: Generally clear. ABDOMEN: Nontender. EXTREMITIES: Upper extremity muscle strength judged to be 4/5 for the major muscle groups. Lower extremity muscle strength 4+/5. The patient walks with a cane. RECOMMENDATIONS: We discussed treatment options with the patient. At this point, she does have pain and discomfort in the left occipital area. Palpation in this area does reproduce a considerable amount of her pain and discomfort. We have discussed the risks and benefits. We will perform a trigger point injection to the area of the left greater occipital nerve. A 25-gauge needle was then advanced into the area of the left greater occipital nerve. A total of 40 mg triamcinolone and 5 mL of 0.25% bupivacaine was injected. The patient tolerated the trigger point well. There were no complications. She remained in the Pain Clinic for an appropriate amount of time. She will follow up in the future as needed. We would like to thank you for letting us participate in her care. Her pain decreased to 0 at the time of discharge. She will call us if she has any concerns. By: 0100 1025 Travis Zambrano MD /matthew
[2019-11-27 09:43] VITALS: BP 149/71
--- NOTE | 2019-11-27 10:07 | NUR ---
Pain Clinic Assessment: 1. History of Osteoarthritis: Right Lower Extremity Right Upper Extremity SPINE History of Rheumatoid Arthritis: HANDS SWELL 2. Height: 4 ft. 10 in. 147.3 cm. Weight: 134.0 lb. oz. 60.782 kg. Patient's BMI: 28.0 3. Vital Signs: BP: 149/71 Pulse: 72 Resp: 20 Temp: 02 Sat: 98 ECG Mon: 4. Pain Intensity: 5 after meds 5. Fall Risk: Dizziness: Y Needs help standing or walking: Y Fallen in the last 3 months: N Fall risk comments: USES CANE 6. Patient on Blood Thinner: None 7. History of Hypertension: Y 8. Opioid Therapy greater than 6 weeks: N Opiate Contract Signed: 9. Risk Assessment Tool Provided: 10. Functional Assessment Tool: 11. Recreational Drug Use: Never Drug Type: Tobacco Use: Never Smoker Tobacco Type: Amount or Packs/day: How Many Years: Alcohol Use: No Frequency: Quant:
== END | disposition home or self-care (01) ==
LOC: PAIN 06:56
DX: M79.18 Myalgia, other site (principal); G89.29 Other chronic pain; E11.22 Type 2 diabetes mellitus with diabetic chronic kidney disease; N18.9 Chronic kidney disease, unspecified; D64.9 Anemia, unspecified; Z98.890 Other specified postprocedural states; Z79.899 Other long term (current) drug therapy; Z79.4 Long term (current) use of insulin; Z96.653 Presence of artificial knee joint, bilateral; Z90.710 Acquired absence of both cervix and uterus; Z85.3 Personal history of malignant neoplasm of breast; Z98.0 Intestinal bypass and anastomosis status; Z88.2 Allergy status to sulfonamides; Z88.8 Allergy status to other drugs, medicaments and biological substances

== ENCOUNTER → 2019-12-28 | Outpatient (CLI) | payer OTHER, MEDICARE | LOC: LAB 15:28 | PROVIDERS: ATTEND Family Medicine | DX: R05 Cough (principal); Z20.828 Contact with and (suspected) exposure to other viral communicable diseases ==

== ENCOUNTER 2020-02-15 10:34 | Emergency (ER) | payer OTHER, MEDICARE ==
[~2020-02-15] VITALS: Ht 149.9 cm; Wt 59.4 kg
[2020-02-15] MEDS ORDERED: CITALOPRAM HBR40 MG PO (11:17)
[2020-02-15 13:00] VITALS: BP 148/76
== END 2020-02-15 13:11 | disposition home or self-care (01) ==
LOC: ER 10:34
DX: S01.81XA Laceration without foreign body of other part of head, initial encounter (principal); S01.112A Laceration without foreign body of left eyelid and periocular area, initial encounter; M25.511 Pain in right shoulder; M54.2 Cervicalgia; E11.9 Type 2 diabetes mellitus without complications; K21.9 Gastro-esophageal reflux disease without esophagitis; Z90.711 Acquired absence of uterus with remaining cervical stump; Z98.890 Other specified postprocedural states; Z85.3 Personal history of malignant neoplasm of breast; Z86.711 Personal history of pulmonary embolism; Z79.899 Other long term (current) drug therapy; Z79.82 Long term (current) use of aspirin; Z88.8 Allergy status to other drugs, medicaments and biological substances; Z88.5 Allergy status to narcotic agent; Z88.2 Allergy status to sulfonamides; W01.0XXA Fall on same level from slipping, tripping and stumbling without subsequent striking against object, initial encounter; Y93.01 Activity, walking, marching and hiking; Y92.89 Other specified places as the place of occurrence of the external cause; Y99.8 Other external cause status

== ENCOUNTER → 2020-04-01 | Outpatient (CLI) | payer OTHER, MEDICARE ==
[~2020-04-01] VITALS: Ht 162.6 cm; Wt 62.3 kg
[~2020-04-01] MED LIST changes: +ARICEPT10 M1 PO; +ASPIR 8181 MG PO; +BENICAR40 MG PO; +CITALOPRAM HBR40 MG PO; +LIPITOR 20 MG T20 M1 PO; +METOPROLOL SUCC50 MG PO; +NORVASC5 MG PO
--- NOTE | ~2020-04-01 | HPC ---
[facility] [place] [address] PAIN MANAGEMENT CONSULTATION Name: SAL GALLAGHER Room #: REG MAXIMILIAN Lambert#: [id number] Admission: 04/01/20 Attend Phys: Travis Zambrano MD Discharge: Date of : 49 Report #: [id number] CC: Travis York MD DATE OF SERVICE: 04/01/2020 CHIEF COMPLAINT: Right leg pain. HISTORY: The patient is a 74-year-old female who has been seen in the Pain Clinic in the past because of fall. She has pain in the occipital area. She has been referred to the Pain Clinic by her daughter. The patient appears to have a complaint to her daughter about leg pain. At this juncture, she has some difficulty giving a reliable history. Her story sometimes is somewhat difficult to pen down. She states that she has fallen 3-4 times. She does walk with the use of a cane. Has some generalized pain and rates it as a 7/10. ALLERGIES: SULFA, CODEINE, DOCETAXEL. CURRENT MEDICATIONS: Celexa 40 mg, David aspirin/caffeine, Imuran 50 mg b.i.d., gentamicin ointment to left ankle wound, omeprazole 40 mg, proair/albuterol puffs q. 4 hours p.r.n., Symbicort 160/4.5, metformin 500 mg b.i.d. PAIN CLINIC ASSESSMENT/PQRS: 1. The patient has some osteoarthritic changes in her low back. She is not being treated for rheumatoid arthritis. She does have a history of arthritis involving her hands and some swelling. 2. Height 5 feet 4 inches, weight 137 pounds, BMI 23.6. 3. Vital signs, blood pressure 157/81, pulse 82, respiratory rate 18, room air saturation 94%. 4. Pain intensity, 7/10. 5. Fall risk. The patient states she has fallen at least 3 times in the recent past. 6. Blood thinner. The patient is not on a blood thinning medication. 7. Hypertension. The patient is being treated for hypertension. 8. Opioids greater than 6 weeks. The patient receives medication from one source. 9. Risk assessment tool, low for opioid use. 10. Functional assessment tool reviewed. 11. Recreational drug use. The patient denies. 12. Tobacco: The patient states she has never smoked. 13. Alcohol. The patient denies use of alcoholic beverages. PHYSICAL EXAMINATION: GENERAL: The patient is a well-developed, well-nourished white female. Appears her stated age of 74 years. Does have some difficulty providing her medical history. HEENT: Normocephalic, atraumatic. Extraocular eye muscles intact. Sclerae nonicteric. Mucous membranes moist. LUNGS: Clear to auscultation. ABDOMEN: Nontender. HEART: Regular. EXTREMITIES: Upper extremity muscle strength is judged to be 4+/5 for the major muscle groups. Lower extremity muscle strength, 4+/5. The patient walks and ambulates with the use of a cane. RECOMMENDATIONS: We discussed treatment options with the patient. At this juncture, the patient does not give a clear history of lumbar radicular pain. It appears that is what she has complained about to her daughter who had brought her to the clinic. Her daughter was not present during the time of the interview. We called her daughter and explained the changed history as provided by the patient. At this juncture, we will not proceed with an injection given the patient states she is not hurting at this point. Her daughter will return to the Pain Clinic to take her home. The patient states that she is moving to [place] to live with her daughter and grandchildren. We would like to thank you for letting us participate in her care. We hope she continues to improve. By: 1151 1513 Travis Zambrano MD /matthew
[2020-04-01 09:15] VITALS: BP 157/81
--- NOTE | 2020-04-01 09:25 | NUR ---
Pain Clinic Assessment: 1. History of Osteoarthritis: Right Lower Extremity Right Upper Extremity SPINE History of Rheumatoid Arthritis: HANDS SWELL 2. Height: 5 ft. 4 in. 162.6 cm. Weight: 137.4 lb. oz. 62.324 kg. Patient's BMI: 23.6 3. Vital Signs: BP: 157/81 Pulse: 82 Resp: 18 Temp: 02 Sat: 94 ECG Mon: 4. Pain Intensity: 7 5. Fall Risk: Dizziness: Y Needs help standing or walking: Y Fallen in the last 3 months: Y Fall risk comments: states she has fallen, uses walker, has dizziness 6. Patient on Blood Thinner: None 7. History of Hypertension: Y 8. Opioid Therapy greater than 6 weeks: N Opiate Contract Signed: 9. Risk Assessment Tool Provided: 10. Functional Assessment Tool: 11. Recreational Drug Use: Never Drug Type: Tobacco Use: Never Smoker Tobacco Type: Amount or Packs/day: How Many Years: Alcohol Use: No Frequency: Quant:
== END ==
LOC: PAIN 06:56
PROVIDERS: ATTEND Anesthesiology Pain Medicine
DX: M79.604 Pain in right leg (principal); Z88.8 Allergy status to other drugs, medicaments and biological substances; Z79.899 Other long term (current) drug therapy

== ENCOUNTER 2020-04-15 11:44 | Inpatient (IN) | payer OTHER, MEDICARE ==
[~2020-04-15] VITALS: Ht 162.6 cm; Wt 62.9 kg
[~2020-04-15 11:44] MED LIST changes: -ASPIR 8181 MG PO; -BENICAR40 MG PO; -LIPITOR 20 MG T20 M1 PO; -METOPROLOL SUCC50 MG PO; -NORVASC5 MG PO
[2020-04-15 11:53] VITALS: BP 163/74
[2020-04-15 12:13] LABS: ABSOLUTE NEUTROPHILS 6.5 thou/uL (1.4-8.2); BASOPHILS 0.5 % (0.0-2.0); EOSINOPHILS 1.4 % (0.0-3.0); HEMATOCRIT 37.8 % (37.0-47.0); HEMOGLOBIN 12.5 gm/dL (12.0-15.0); LYMPHOCYTES 9.9 % (24.0-44.0); MCH 30.4 pg (26.0-34.0); MCHC 33.1 g/dL (28.0-37.0); MONOCYTES 7.4 % (1.0-8.0); PLATELET COUNT 269 thou/uL (150-400); POLYS 80.8 % (36.0-66.0); RBC 4.11 mil/uL (4.20-5.00); RDW 13.7 % (10.5-14.5)
[2020-04-15 12:22] LABS: CALCIUM 9.8 mg/dL (8.5-10.1); POTASSIUM 4.3 mmol/L (3.5-5.1)
[2020-04-15 12:31] LABS: TROPONIN-I 0.15 ng/mL (<0.06)
--- NOTE | 2020-04-15 13:40 | EKG ---
[facility] [place] [address] ELECTROCARDIOGRAM REPORT Name: SAL GALLAGHER Room #: 170-1 ADM IN M.R.#: [id number] Admission: 04/15/20 Attend Phys: Cliff York MD Discharge: Date of : 49 Report #: [id number] THIS REPORT FOR: cc: Cliff York MD, Neal A. MD Santiago, Patrick MD [facility] ~ THIS REPORT FOR: //name// [facility] ED Test Date: 2020-04-15 Test Time: 11:56:38 Pat Name: SAL GALLAGHER Department: Room: 170 Gender: F Galley Boy: Dusty : 1945 Requested By: Jorje Palomo Order Number: [id number] MD: Art Long Measurements Intervals Midnight Rate: 90 P: 74 GA: 176 QRS: 55 QRSD: 82 T: 91 QT: 390 QTc: 478 Interpretive Statements Sinus rhythm Probable left atrial enlargement Nonspecific T abnormalities, lateral leads Borderline prolonged QT interval Compared to ECG 06/29/2019 13:55:25 No significant changes Electronically Signed On 04-15-2020 13:40:19 CDT by Art Long [email or web address] <ELECTRONICALLY SIGNED> By: Art Long MD, FACC 04/15/20 1340 1156 1156 Art Long MD, FAC /EPI
[2020-04-15 13:45] LABS: URINE BILIRUBIN NEGATIVE (Negative); URINE BLOOD 2+ (Negative); URINE CLARITY CLEAR; URINE COLOR YELLOW; URINE GLUCOSE-RANDOM* 1+ (Negative); URINE KETONES NEGATIVE (Negative); URINE LEUKOCYTES-REFLEX TRACE (Negative); URINE NITRITE-REFLEX NEGATIVE (Negative); URINE PROTEIN (DIPSTICK) 2+ (Negative); URINE SPECIFIC GRAVITY 1.025 (1.005-1.035); URINE UROBILINOGEN 0.2 E.U./dl (0.2-1.0)
[2020-04-15 14:01] LABS: CASTS None Seen /LPF (None Seen); MUCUS 4-6 Moderate strn/LPF (None Seen); SQUAMOUS 0-3 Few /LPF (0-3)
[2020-04-15 14:02] LABS: BACTERIA-REFLEX 1-9 Few /HPF (None Seen); CRYSTALS None Seen /LPF (None Seen); URINE RBC 0-2 Rare /HPF (0-2); URINE WBC-REFLEX 0-5 Rare /HPF (0-5)
[2020-04-15 20:23] VITALS: BP 153/73
--- NOTE | 2020-04-15 20:29 | NUR ---
HANDS OFF TOOL FAXED TO FLOOR
[2020-04-15 20:47] VITALS: BP 145/74
--- NOTE | 2020-04-15 20:47 | NUR ---
MESSAGE LEFT FOR DAUGHTER AT [phone] REGARDING ADMISSION ROOM
[2020-04-15 22:26] VITALS: BP 177/84
[2020-04-16] VITALS (9 sets, daily range): BP systolic 154–195; BP diastolic 63–87
--- NOTE | 2020-04-16 00:05 | NUR ---
PT ADMITTED FROM HOME THROUGH ED. PT REPORTS PLANS ON LIVING WITH DAUGHTER RELATED TO HER NEW DIAGNOSIS OF DEMENTIA. PT REPORTED CHEST PAIN EARLIER IN THE DAY AND A FEW DAYS AGO. PT HAS PNEUMONIA AND UTI, R/O FOR COVID. LUNGS WITH CRACKLES, DRY COUGH. PT REPORTS HER DAUGHTER SETS UP HER MEDS IN A PILL BOX. PT UNSTEADY WEAK WITH TRANSFERS. IVF INTACT. PT VERBALIZED UNDERSTANDING TO CALL FOR ASSISTANCE, BED ALARM ON. PT ALERT TO SELF AND SITUATION, BUT DID NOT KNOW THE NAME OF THE HOSPITAL OR DATE, NEEDED ASSISTANCE WITH DAUGHTERS PHONE NUMBER. DAUGHTER ANDERSON ZUNIGA IS PTS DPOA.
--- NOTE | 2020-04-16 06:27 | NUR ---
COVID PCR NEGATIVE, PROVIDER HOTEL MAINTENANCE ENGINEER, SPECIAL DIET COOK AND CHARGE NOTIFIED.
--- NOTE | 2020-04-16 06:40 | NUR ---
DR SANTIAGO LEFT MESSAGE AT SERVICE RE COVID NEG AND PHARMACY HOLDING CELEXA AND ARICEPT R/T LONG QT POTENTIAL AND PTS ADMISSION DX NONSTEMI.
--- NOTE | 2020-04-16 12:34 | 2DMMODE ---
[facility] [place] [address] 2 D/M-MODE ECHOCARDIOGRAM Name: SAL GALLAGHER Room #: 363-P ADM IN M.R.#: [id number] Admission: 04/15/20 Attend Phys: Cliff York MD Discharge: Date of : 49 Report #: [id number] THIS REPORT FOR: cc: Cliff York MD, Neal A. MD Lundgren, Craig H. MD [facility] ~ APPROVED REPORT Study performed: 04/16/2020 10:34:47 EXAM: Comprehensive 2D, Doppler, and color-flow Echocardiogram Patient Location: In-Patient Room #: 363 Status: routine BSA: 1.68 HR: 91 bpm BP: 131/84 mmHg Rhythm: NSR Other Information Study Quality: Adequate Indications Dyspnea 2D Dimensions RVDd: 35.75 mm IVSd: 12.28 (7-11mm) LVOT Diam: 20.14 (18-24mm) LVDd: 34.45 mm PWd: 13.11 (7-11mm) Ascending Ao: 23.39 (22-36mm) Left Atrium: 37.78 (27-40mm) Aortic Root: 32.64 mm LV Single Plane 4CH: 57.42 % Volumes Left Atrial Volume (Systole) Single Plane 4CH: 32.54 mL Single Plane 2CH: 20.75 mL Aortic Valve AoV Peak Ryan.: 1.27 m/s AO Peak Gr.: 6.42 mmHg LVOT Max P.22 mmHg AO Mean Gr.: 2.22 mmHg LVOT Mean P.20 mmHg AO V2 Mean: 0.65 m/s LVOT Max V: 1.14 m/s AO V2 VTI: 20.24 cm LVOT Mean V: 0.66 m/s [facility] [address] [place] [address] 2 D/M-MODE ECHOCARDIOGRAM Name: SAL GALLAGHER Room #: 363-P [facility] IN ..#: [id number] Admission: 04/15/20 Attend Phys: Cliff York, Discharge: Date of : 49 Report #: [id number] EDDA (VTI): 3.01 cm2 LVOT V1 VTI: 19.14 cm EDDA Vmax: 2.87 cm2 SV (LVOT): 60.96 mL Mitral Valve E/A Ratio: 0.4 MV E Max Ryan.: 0.49 m/s MV A Ryan.: 1.30 m/s Pulmonary Valve PV Peak Ryan.: 0.90 m/s PV Peak Gr.: 3.24 mmHg Tricuspid Valve TR Peak Ryan.: 3.39 m/s TR Peak Gr.: 46.09 mmHg Left Ventricle The left ventricle is normal size. There is normal LV segmental wall motion. Mild concentric left ventricular hypertrophy. The left ventricular systolic function is normal. The left ventricular ejection fraction is within the normal range. LVEF is 55-60%. Mild diastolic dysfunction is present (impaired relaxation pattern). Right Ventricle The right ventricle is normal size. The right ventricular systolic function is normal. Atria The left atrium size is normal. The right atrium size is normal. Aortic Valve The aortic valve is normal in structure. No aortic regurgitation is present. There is no aortic valvular stenosis. Mitral Valve Minimal mitral annular calcification. Trace mitral regurgitation. No evidence of mitral valve stenosis. Tricuspid Valve The tricuspid valve is normal in structure. Trace tricuspid regurgitation. Estimated PAP 50 mmHg. Pulmonic Valve The pulmonary valve is normal in structure. There is no pulmonic [facility] [address] [place] [address] 2 D/M-MODE ECHOCARDIOGRAM Name: SAL GALLAGHER Room #: 363-P [facility] IN .R.#: [id number] Admission: 04/15/20 Attend Phys: Cliff York, Discharge: Date of : 49 Report #: [id number] valvular regurgitation. Great Vessels The aortic root is normal in size. IVC is normal in size and collapses >50% with inspiration. Pericardium There is no pericardial effusion. <Conclusion> The left ventricular systolic function is normal. There is normal LV segmental wall motion. LVH LVEF is 55-60%. Mild diastolic dysfunction Possible tiny membranous VSD Mild concentric left ventricular hypertrophy. The aortic valve is normal in structure. No aortic regurgitation or stenosis Minimal mitral annular calcification. Trace mitral regurgitation. Trace tricuspid regurgitation. Estimated pulmonary artery pressure of 50 mmHg. There is no pericardial effusion. <ELECTRONICALLY SIGNED> By: Willi Hudson MD, FACC 04/16/20 1234 1234 1234 Willi Hudson MD, FACC /INF
--- NOTE | 2020-04-16 19:19 | NUR ---
PT CARE ASSUMED AT 0700. ASSESSMENT CHARTED. MEDICATION CHARTED. DEMENTIA; IMPULSIVE. PULLED RAC IV; REPLACED WITH RT WRIST IV. ACHS. COVID NEGATIVE. PULLS LEADS OFF. UNDRESSES.
--- NOTE | 2020-04-17 00:49 | NUR ---
PT RESTING IN BED WATCHING TV. REPORTED BEING TIRED AND WANTING TO GO TO BED. PT IMPULSIVELY GETS OOB TO USE BSC, BED ALARM ON. PT HAD GOWN ON INSIDE OUT WITH OPENING IN THE FRONT. PT HAD TELE BOX TWISTED IN THE FRONT OF HER TSHIRT TO MAKE A V NECK. PT DID NOT HAVE UNDERWEAR ON. PT ASSISTED WITH HER CLOTHING AND NEW GOWN AND SOCKS PLACED. O2 PER NC. LUNGS COARSE. PT SOA WITH TRANSFERS. BLUNTED AFFECT [facility] CONTACT, MAKING JOKES WITH STAFF. PT STATED SHE ENJOYS WATCHING THE [employer] CHANNEL.
[2020-04-17 03:51] VITALS: BP 151/71
--- NOTE | 2020-04-17 04:41 | NUR ---
SPOKE WITH CAROL YADAV NEG PCR COVID TEST. PT IS FROM HOME AND DOES NOT NEED A SECOND NEG PCR TEST, SHE IS OKAY TO TRANSFER OUT.
[2020-04-17 06:05] LABS: HEMATOCRIT 34.4 % (37.0-47.0); HEMOGLOBIN 11.5 gm/dL (12.0-15.0); MCH 30.8 pg (26.0-34.0); MCHC 33.5 g/dL (28.0-37.0); RBC 3.74 mil/uL (4.20-5.00); RDW 13.4 % (10.5-14.5); WBC 6.7 thou/uL (4.0-11.0)
[2020-04-17 06:24] LABS: ANION GAP 9 mmol/L (7-16); BUN 12 mg/dL (7-18); CALCIUM 9.2 mg/dL (8.5-10.1); CHLORIDE 98 mmol/L (98-107); CO2 29 mmol/L (21-32); CREATININE 0.8 mg/dL (0.6-1.0); GLUCOSE 154 mg/dL (74-106); POTASSIUM 3.8 mmol/L (3.5-5.1); SODIUM 136 mmol/L (136-145); TROPONIN-I <0.06 ng/mL (<0.06)
[2020-04-17 09:02] VITALS: BP 170/69
--- NOTE | 2020-04-17 11:21 | EKG ---
[facility] [place] [address] ELECTROCARDIOGRAM REPORT Name: SAL GALLAGHER Room #: 363-P ADM IN M.R.#: [id number] Admission: 04/15/20 Attend Phys: Cliff York MD Discharge: Date of : 49 Report #: [id number] THIS REPORT FOR: cc: Cliff York MD, Neal A. MD Lundgren,Willi Neil MD [facility] ~ THIS REPORT FOR: //name// [facility] Test Date: 2020-04-17 Test Time: 07:48:06 Pat Name: SAL GALLAGHER Department: Room: 363 P Gender: F Retrimmer: [facility] : 1945 Requested By: Willi Hudson Order Number: [id number] MD: Willi Hudson Measurements Intervals [place] Rate: 78 P: 71 NV: 168 QRS: 63 QRSD: 88 T: 106 QT: 446 QTc: 509 Interpretive Statements Sinus rhythm Left atrial enlargement Abnrm T, consider ischemia, anterolateral lds Prolonged QT interval Baseline wander in lead(s) I,III,aVR,aVL Compared to ECG 04/15/2020 11:56:38 T wave abnormality is more pronounced Electronically Signed On 04-17-2020 11:21:03 CDT by Willi Hudson [email or web address] <ELECTRONICALLY SIGNED> By: Willi Hudson MD, FAC 04/17/20 1121 0748 Willi Hudson MD, [facility] /EPI
[2020-04-17 11:40] VITALS: BP 148/62
[2020-04-17 16:45] VITALS: BP 140/58
--- NOTE | 2020-04-17 18:16 | NUR ---
ASSUMED PATIENT CARTE AT 0700. A/0 X3. FORGETFUL. OFF ISO. UP WITH STANDBY ASSISTED TO BSC. PROGRESSING TOWARDS POC GOALS.
[2020-04-17 20:12] VITALS: BP 130/56
[2020-04-18 04:30] VITALS: BP 133/53
--- NOTE | 2020-04-18 04:56 | NUR ---
UP TO BSC FOR LARGE VOID AFTER SLEEPING ALL NIGHT. PATIENT IS PLEASANT AND NEEDING O2, BUT IS GLAD TO BE COVID NEGATIVE.
[2020-04-18] MEDS ORDERED: LIPITOR 20 MG T20 M1 PO (08:02)
[2020-04-18] MEDS ORDERED: METOPROLOL SUCC50 MG PO (08:02)
[2020-04-18] MEDS ORDERED: ASPIR 8181 MG PO (08:03)
[2020-04-18] MEDS ORDERED: NORVASC5 MG PO (08:03)
[2020-04-18] MEDS ORDERED: BENICAR40 MG PO (08:03)
[2020-04-18 08:17] VITALS: BP 143/60
[2020-04-18 13:13] VITALS: BP 129/50
--- NOTE | 2020-04-18 14:17 | NUR ---
PT DISCHARGED TO [facility]...REPORT CALLED TO CLARICE...IV DC'D AND TELE REMOVED...WAS UNABLE TO LOCATE PATIENT CELL PHONE... SHE REPORTS LAST SEEING IT FRI OR SAT...
--- NOTE | 2020-04-18 16:08 | NUR ---
INITIAL ASSESSMENT/DISCHARGE NOTE: Received consult. LYNN reviewed chart and spoke with nursing and attending physician. Pt was admitted from home due to chest pain/elevated troponin. Pt placed in Enhanced Isolation to r/o COVID-19. Pt's test was negative. Enhanced Isolation precautions discontinued. Pt is medically stable for discharge to SNF today. LYNN spoke with pt's dtr, Lana, via phone. Introduced role of SW. Pt with hx of dementia. Pt has been living alone at home. Pt was using a walker. Pt is currently on service with [facility] . Pt's PCP is Dr. York. Pt's dtr has made arrangements for pt to move into their basement apartment when discharged home from SNF. SW provided options for SNF. Pt's dtr requests referral to [facility], as she had already discussed SNF placement with attending physician over the weekend. LYNN faxed SNF referral/COVID test results and discharge orders/summary to [facility] for review. Notified liaison of new referral. [facility] is able to accept pt today. Wheelchair van transportation scheduled for 1400 via facility's arrangements. LYNN updated pt's nurse and dtr with transportation time. SW discussed visitor restrictions at [facility]. Pt's dtr verbalized understanding. LYNN updated [facility] liaison. Chart copy requested. Nursing provided with number to call report. No additional SW needs identified at this time, but is available to assist should needs arise.
== END 2020-04-18 14:26 | DRG 280 ==
LOC: ER 11:44 → EROBS 13:21 → 3W 13:21
PROVIDERS: Nurse Practitioner; ADMIT Family Medicine; ATTEND Family Medicine
DX: I21.4 Non-ST elevation (NSTEMI) myocardial infarction (principal); I50.31 Acute diastolic (congestive) heart failure; I42.2 Other hypertrophic cardiomyopathy; E11.9 Type 2 diabetes mellitus without complications; J84.10 Pulmonary fibrosis, unspecified; I11.0 Hypertensive heart disease with heart failure; F03.90 Unspecified dementia, unspecified severity, without behavioral disturbance, psychotic disturbance, mood disturbance, and anxiety; R53.81 Other malaise; K21.9 Gastro-esophageal reflux disease without esophagitis; E78.5 Hyperlipidemia, unspecified; I08.1 Rheumatic disorders of both mitral and tricuspid valves; Z60.2 Problems related to living alone; Z20.828 Contact with and (suspected) exposure to other viral communicable diseases; Z96.653 Presence of artificial knee joint, bilateral; Z88.2 Allergy status to sulfonamides; Z88.5 Allergy status to narcotic agent; Z88.8 Allergy status to other drugs, medicaments and biological substances; Z85.3 Personal history of malignant neoplasm of breast; Z90.710 Acquired absence of both cervix and uterus; Z90.49 Acquired absence of other specified parts of digestive tract; Z79.82 Long term (current) use of aspirin; Z79.899 Other long term (current) drug therapy
CPT/HCPCS: 10879

== ENCOUNTER → 2020-05-13 | Outpatient (CLI) | payer OTHER, MEDICARE ==
[~2020-05-13] MED LIST changes: +ASPIR 8181 MG PO; +BENICAR40 MG PO; +LIPITOR 20 MG T20 M1 PO; +METOPROLOL SUCC50 MG PO; +NORVASC5 MG PO
== END ==
LOC: SJCVCIMAG 07:40
PROVIDERS: ATTEND Internal Medicine
DX: I42.9 Cardiomyopathy, unspecified (principal); R07.9 Chest pain, unspecified; E11.9 Type 2 diabetes mellitus without complications; I10 Essential (primary) hypertension; I25.2 Old myocardial infarction; Z79.899 Other long term (current) drug therapy

== ENCOUNTER → 2020-06-10 | Outpatient (CLI) | payer OTHER, MEDICARE ==
[~2020-06-10] VITALS: Ht 162.6 cm; Wt 60.8 kg
[~2020-06-10] MED LIST changes: +MUCINEX600 MG PO; +TYLENOL EXTRA500 MG PO
[2020-06-10 09:22] VITALS: BP 168/75
--- NOTE | 2020-06-10 09:29 | NUR ---
Pain Clinic Assessment: 1. History of Osteoarthritis: Right Lower Extremity Right Upper Extremity SPINE History of Rheumatoid Arthritis: Not Applicable 2. Height: 5 ft. 4 in. 162.6 cm. Weight: 134.0 lb. oz. 60.782 kg. Patient's BMI: 23.0 3. Vital Signs: BP: 168/75 Pulse: 70 Resp: 18 Temp: 02 Sat: 92 ECG Mon: 4. Pain Intensity: 6 neck 4 vang 5. Fall Risk: Dizziness: N Needs help standing or walking: Y Fallen in the last 3 months: Y Fall risk comments: FELL OUT OF BED NOV 16 AT REH[facility]. 6. Patient on Blood Thinner: None 7. History of Hypertension: Y 8. Opioid Therapy greater than 6 weeks: N Opiate Contract Signed: 9. Risk Assessment Tool Provided: 10. Functional Assessment Tool: 11. Recreational Drug Use: Never Drug Type: Tobacco Use: Never Smoker Tobacco Type: Amount or Packs/day: How Many Years: Alcohol Use: No Frequency: Quant:
== END | disposition home or self-care (01) ==
LOC: PAIN 06:45
PROVIDERS: ATTEND Anesthesiology Pain Medicine
DX: M54.81 Occipital neuralgia (principal); M54.16 Radiculopathy, lumbar region; I12.9 Hypertensive chronic kidney disease with stage 1 through stage 4 chronic kidney disease, or unspecified chronic kidney disease; E11.22 Type 2 diabetes mellitus with diabetic chronic kidney disease; N18.9 Chronic kidney disease, unspecified; I25.2 Old myocardial infarction; K21.9 Gastro-esophageal reflux disease without esophagitis; F03.90 Unspecified dementia, unspecified severity, without behavioral disturbance, psychotic disturbance, mood disturbance, and anxiety; Z98.890 Other specified postprocedural states; Z79.899 Other long term (current) drug therapy; Z88.2 Allergy status to sulfonamides; Z88.8 Allergy status to other drugs, medicaments and biological substances

== ENCOUNTER → 2020-09-02 | Outpatient (CLI) | payer OTHER, MEDICARE ==
[~2020-09-02] VITALS: Ht 162.6 cm; Wt 57.5 kg
[~2020-09-02] MED LIST changes: +PAMELOR10 MG PO
[2020-09-02 12:30] VITALS: BP 148/68
== END | disposition home or self-care (01) ==
LOC: PAIN 06:47
PROVIDERS: ATTEND Anesthesiology Pain Medicine
DX: M54.16 Radiculopathy, lumbar region (principal); G89.29 Other chronic pain; M54.81 Occipital neuralgia; I12.9 Hypertensive chronic kidney disease with stage 1 through stage 4 chronic kidney disease, or unspecified chronic kidney disease; E11.22 Type 2 diabetes mellitus with diabetic chronic kidney disease; N18.9 Chronic kidney disease, unspecified; K21.9 Gastro-esophageal reflux disease without esophagitis; F03.90 Unspecified dementia, unspecified severity, without behavioral disturbance, psychotic disturbance, mood disturbance, and anxiety; I25.2 Old myocardial infarction; Z88.2 Allergy status to sulfonamides; Z88.8 Allergy status to other drugs, medicaments and biological substances; Z98.890 Other specified postprocedural states; Z79.899 Other long term (current) drug therapy

== ENCOUNTER → 2020-11-02 | Outpatient (CLI) | payer OTHER, MEDICARE ==
[~2020-11-02] VITALS: Ht 162.6 cm; Wt 58.2 kg
[2020-11-02 10:35] VITALS: BP 132/68
--- NOTE | 2020-11-02 10:55 | NUR ---
Pain Clinic Assessment: 1. History of Osteoarthritis: Right Lower Extremity Right Upper Extremity SPINE History of Rheumatoid Arthritis: Not Applicable 2. Height: 5 ft. 4 in. 162.6 cm. Weight: 128.2 lb. oz. 58.151 kg. Patient's BMI: 22.0 3. Vital Signs: BP: 132/68 Pulse: 72 Resp: 14 Temp: 02 Sat: 100 ECG Mon: 4. Pain Intensity: 5 5. Fall Risk: Dizziness: N Needs help standing or walking: Y Fallen in the last 3 months: N Fall risk comments: FELL OUT OF BED NOV 16 AT [facility]. 6. Patient on Blood Thinner: None 7. History of Hypertension: Y 8. Opioid Therapy greater than 6 weeks: N Opiate Contract Signed: 9. Risk Assessment Tool Provided: 10. Functional Assessment Tool: 11. Recreational Drug Use: Never Drug Type: Tobacco Use: Never Smoker Tobacco Type: Amount or Packs/day: How Many Years: Alcohol Use: No Frequency: Quant:
== END | disposition home or self-care (01) ==
LOC: PAIN 08:49
PROVIDERS: ATTEND Anesthesiology Pain Medicine
DX: M54.16 Radiculopathy, lumbar region (principal); G89.29 Other chronic pain; E11.22 Type 2 diabetes mellitus with diabetic chronic kidney disease; N18.9 Chronic kidney disease, unspecified; M19.90 Unspecified osteoarthritis, unspecified site; Z98.890 Other specified postprocedural states; Z79.899 Other long term (current) drug therapy; Z88.2 Allergy status to sulfonamides; Z88.6 Allergy status to analgesic agent; Z88.8 Allergy status to other drugs, medicaments and biological substances

== ENCOUNTER → 2021-01-20 | Outpatient (CLI) | payer OTHER, MEDICARE ==
[~2021-01-20] VITALS: Ht 160 cm; Wt 62.1 kg
[~2021-01-20] MED LIST changes: +MEDROLDOSEPACK PO; +REMERON15 M2 PO
[2021-01-20 08:34] VITALS: BP 156/70
--- NOTE | 2021-01-20 08:49 | NUR ---
Pain Clinic Assessment: 1. History of Osteoarthritis: Right Lower Extremity Right Upper Extremity SPINE History of Rheumatoid Arthritis: Not Applicable 2. Height: 5 ft. 3 in. 160.0 cm. Weight: 137.0 lb. oz. 62.143 kg. Patient's BMI: 24.3 3. Vital Signs: BP: 156/70 Pulse: 62 Resp: 18 Temp: 02 Sat: 99 ECG Mon: 4. Pain Intensity: 4 5. Fall Risk: Dizziness: N Needs help standing or walking: Y Fallen in the last 3 months: N Fall risk comments: FELL OUT OF BED NOV 16 AT [facility]. 6. Patient on Blood Thinner: None 7. History of Hypertension: Y 8. Opioid Therapy greater than 6 weeks: N Opiate Contract Signed: 9. Risk Assessment Tool Provided: 10. Functional Assessment Tool: 11. Recreational Drug Use: Never Drug Type: Tobacco Use: Never Smoker Tobacco Type: Amount or Packs/day: How Many Years: Alcohol Use: No Frequency: Quant:
== END ==
LOC: PAIN 06:47
PROVIDERS: ATTEND Anesthesiology Pain Medicine
DX: G89.29 Other chronic pain (principal); M54.2 Cervicalgia; I12.9 Hypertensive chronic kidney disease with stage 1 through stage 4 chronic kidney disease, or unspecified chronic kidney disease; E11.22 Type 2 diabetes mellitus with diabetic chronic kidney disease; K21.9 Gastro-esophageal reflux disease without esophagitis; N18.9 Chronic kidney disease, unspecified; I21.4 Non-ST elevation (NSTEMI) myocardial infarction; M47.9 Spondylosis, unspecified; M19.09 Primary osteoarthritis, other specified site; M54.16 Radiculopathy, lumbar region; G30.1 Alzheimer's disease with late onset; F02.80 Dementia in other diseases classified elsewhere, unspecified severity, without behavioral disturbance, psychotic disturbance, mood disturbance, and anxiety; J84.10 Pulmonary fibrosis, unspecified; M48.02 Spinal stenosis, cervical region; M54.81 Occipital neuralgia; Z79.899 Other long term (current) drug therapy; Z79.891 Long term (current) use of opiate analgesic; Z88.8 Allergy status to other drugs, medicaments and biological substances; Z88.5 Allergy status to narcotic agent; Z88.2 Allergy status to sulfonamides

== ENCOUNTER 2021-02-24 09:44 | Emergency (ER) | payer OTHER, MEDICARE ==
[~2021-02-24] VITALS: Ht 152.4 cm; Wt 63.5 kg
[2021-02-24 10:18] LABS: ABSOLUTE NEUTROPHILS 7.5 thou/uL (1.4-8.2); EOSINOPHILS 7.5 % (0.0-3.0); HEMATOCRIT 34.6 % (37.0-47.0); HEMOGLOBIN 11.8 gm/dL (12.0-15.0); LYMPHOCYTES 8.1 % (24.0-44.0); MCV 93.9 fL (80.0-100.0); PLATELET COUNT 387 thou/uL (150-400); POLYS 76.4 % (36.0-66.0); RBC 3.68 mil/uL (4.20-5.00); WBC 9.9 thou/uL (4.0-11.0)
[2021-02-24 10:36] LABS: CALCIUM 9.7 mg/dL (8.5-10.1); CREATININE 0.9 mg/dL (0.6-1.0); POTASSIUM 3.9 mmol/L (3.5-5.1)
[2021-02-24 10:47] LABS: ALBUMIN 3.2 g/dL (3.4-5.0); TOTAL BILIRUBIN 0.4 mg/dL (0.2-1.0); TOTAL PROTEIN 7.7 g/dL (6.4-8.2)
[2021-02-24 11:15] VITALS: BP 142/61
== END 2021-02-24 11:15 | disposition home or self-care (01) ==
LOC: ER 09:44
PROVIDERS: Emergency Medicine
DX: I12.9 Hypertensive chronic kidney disease with stage 1 through stage 4 chronic kidney disease, or unspecified chronic kidney disease (principal); N18.9 Chronic kidney disease, unspecified; E11.22 Type 2 diabetes mellitus with diabetic chronic kidney disease; K21.9 Gastro-esophageal reflux disease without esophagitis; F03.90 Unspecified dementia, unspecified severity, without behavioral disturbance, psychotic disturbance, mood disturbance, and anxiety; Z79.899 Other long term (current) drug therapy; Z88.2 Allergy status to sulfonamides; Z88.5 Allergy status to narcotic agent; Z88.8 Allergy status to other drugs, medicaments and biological substances

== ENCOUNTER → 2021-02-24 | Outpatient (CLI) | payer OTHER, MEDICARE ==
[~2021-02-24] VITALS: Ht 142.2 cm; Wt 63.5 kg
[~2021-02-24] MED LIST changes: +CBD; +CBD LOTION; +PERCOCET 5-3251 EACH PO
[2021-02-24 08:24] VITALS: BP 200/68
--- NOTE | 2021-02-24 08:33 | NUR ---
Pain Clinic Assessment: 1. History of Osteoarthritis: Right Lower Extremity Right Upper Extremity SPINE History of Rheumatoid Arthritis: Not Applicable 2. Height: 4 ft. 8 in. 142.2 cm. Weight: 140.0 lb. oz. 63.504 kg. Patient's BMI: 31.4 3. Vital Signs: BP: 200/68 Pulse: 82 Resp: 16 Temp: 02 Sat: 95 ECG Mon: 4. Pain Intensity: 10 5. Fall Risk: Dizziness: N Needs help standing or walking: Y Fallen in the last 3 months: N Fall risk comments: FELL OUT OF BED NOV 16 AT [facility]. 6. Patient on Blood Thinner: None 7. History of Hypertension: Y 8. Opioid Therapy greater than 6 weeks: N Opiate Contract Signed: 9. Risk Assessment Tool Provided: 10. Functional Assessment Tool: 11. Recreational Drug Use: Never Drug Type: Tobacco Use: Never Smoker Tobacco Type: Amount or Packs/day: How Many Years: Alcohol Use: No Frequency: Quant:
== END ==
LOC: PAIN 08:00
PROVIDERS: ATTEND Anesthesiology Pain Medicine
DX: M48.02 Spinal stenosis, cervical region (principal); I10 Essential (primary) hypertension; G30.9 Alzheimer's disease, unspecified; K21.9 Gastro-esophageal reflux disease without esophagitis; I25.2 Old myocardial infarction; M54.16 Radiculopathy, lumbar region; J84.10 Pulmonary fibrosis, unspecified; F02.80 Dementia in other diseases classified elsewhere, unspecified severity, without behavioral disturbance, psychotic disturbance, mood disturbance, and anxiety; Z79.899 Other long term (current) drug therapy; Z79.891 Long term (current) use of opiate analgesic